=== PATIENT | female | born 1995 | race Caucasian/White ===

== ENCOUNTER 2016-06-30 05:43 | Outpatient (CLI) | payer MEDICAID ==
[~2016-06-30] VITALS: Ht 152.4 cm; Wt 63.5 kg
[~2016-06-30 05:43] MED LIST: ACET325T38 PO; ALBU8.5H2 IH; AMOX500C2 PO; BETA6VIA IJ; BUTA1CAP41 PO; CEFD300C16 PO; CYCL10TA9 PO; CYCL5TAB PO; D-ME473S17 PO; DCS100C PO; DIPH25TA82 PO; FAMO20TA5 PO; FERR-57 PO; FERR325C PO; FLT05NA16 NS; FRS325T PO; HYDR-1231 PO; HYDR-757 PO; Hydrocodone Bit/Acetaminophen PO; IBP600T1 PO; LORA10CA PO; METH4TAB10 PO; ONDA4TAB11 PO; ONDA4TAB8 PO; OXYM15MI4 NS; PHEN1SUP3 RC; PNV1TABL9 PO; PRD20T PO; PRED20TA PO; PREN-93 PO; SULF-222 PO; TRAM50TA2 PO
== END 2016-06-30 10:16 ==
LOC: PREOP 05:43
PROVIDERS: ATTEND Surgery
DX: Z01.818 Encounter for other preprocedural examination (principal); R19.7 Diarrhea, unspecified

== ENCOUNTER → 2016-07-03 | Day surgery (SDC) | payer OTHER ==
[~2016-07-03] VITALS: Ht 152.4 cm; Wt 63.5 kg
[~2016-07-03] MED LIST changes: +FLUMAZENIL (ROMAZICON) 0.1 MG/ML 5 ML VIAL INJ PRN; +MIDAZOLAM 2 MG/2 ML (VERSED) VIAL ONE; +NALOXONE 0.4 MG/ML 1 ML (NARCAN) VIAL IVP PRN; +NS IV 500 ML 500 ML IV ONE; +NS IV 500 ML 500 ML ONE; +fentaNYL INJECTION 100 MCG/2 ML AMP ONE
--- NOTE | 2016-07-03 11:22 | Conscious Sedation/ASA ---
Conscious Sedation Pre-Proced ASA Class: 2 Airway Mallampati Classification: ([place] appropriate class) I. II. III, IV Lungs Heart ASA score ASA 1: a normal healthy patient ASA 2: a patient with a mild systemic disease (mid diabetes, controlled hypertension, obesity ASA 3: a patient with a severe systemic disease that limits activity (angina , COPD, prior Myocardial infarction) ASA 4: a patient with an incapacitating disease that is a constant threat to life (CHF, renal failure) ASA 5: a moribund patient not expected to survive 24 hrs. (ruptured aneurysm) ASA 6: a declared brain patient whose organs are being harvested. For emergent operations, add the letter E after the classification Grade 1 Sedation Plan: Discussed options with patient/fam Note The patient is an appropriate candidate to undergo the planned procedure, sedation, and anesthesia. The patient immediately re-assessed prior to indication. HANK GREEN MD Jul 03, 2016 11:22 am
[2016-07-03 11:25] VITALS: BP 119/88
[2016-07-03] MEDS: fentaNYL INJECTION 100 MCG/2 ML AMP IVP PRN ×4 (11:51→12:02)
[2016-07-03] MEDS: MIDAZOLAM 2 MG/2 ML (VERSED) VIAL IVP PRN ×4 (11:52→11:59)
--- NOTE | 2016-07-03 12:08 | Endoscopy Procedure Report ---
Endoscopy Report Date: Jul 03, 2016 Preoperative Diagnosis: change in bowel habits Study Performed: Colonoscopy Procedure Instrument: Colonoscope Endo Procedure/Findings Findings 1.: Normal Copy Copies To 1: ROXY JUSTIN XAVIER M MD Jul 03, 2016 12:08 pm
--- NOTE | 2016-07-03 12:09 | Discharge Inst-Simple/Standard ---
Discharge Inst-Standard Discharge Medications New, Converted or Re-Newed RX: Other Patient Instructions/Follow Up Plan of Care/Instructions/FU: follow-up with her primary Activity as Tolerated: Yes Discharge Diet: No Restrictions HANK GREEN MD Jul 03, 2016 12:09 pm
[2016-07-03 12:35] VITALS: BP 103/61
--- NOTE | 2016-07-03 13:03 | OPERATIVE REPORT ---
DATE OF SERVICE: 07/03/2016 PROCEDURE: Colonoscopy. SURGEON: HANK GREEN MD INDICATION FOR PROCEDURE: This lady came in for colonoscopy to evaluate a change in her bowel habits with intermittent diarrhea. Informed consent was obtained after reviewing the procedure in detail. DESCRIPTION OF PROCEDURE: She was placed in left lateral decubitus position and her vital signs were monitored. Conscious sedation was achieved using Versed and fentanyl. Digital rectal examination was unremarkable. The colonoscope was introduced into the rectum and advanced all the way up the cecum. It was then withdrawn slowly and the mucosa examined in a systematic fashion. There was no abnormality. She tolerated the procedure well and was taken back to the nursing area in a stable condition. IMPRESSION: 1. Change in bowel habits. 2. Normal colonoscopy. NOTE: Her symptoms could be managed along the lines of irritable bowel syndrome. Job ID: [id number] DocumentID: [id number] Dictated Date: 07/03/2016 12:04:52 Crotch Breaker Date: 07/03/2016 13:03:09 Dictated By: HANK GREEN MD MTDD
[2016-07-03 13:05] VITALS: BP 101/69
[2016-07-03 13:20] VITALS: BP 101/69
== END ==
LOC: ENDO 11:08
PROVIDERS: ATTEND Surgery
DX: R19.7 Diarrhea, unspecified (principal); R19.5 Other fecal abnormalities
CPT/HCPCS: 84703

== ENCOUNTER → 2016-11-09 | Outpatient (CLI) | payer MEDICAID, OTHER ==
[~2016-11-09] MED LIST changes: +CATHETER FLUSH 10 ML SYR IV PRN; -FLUMAZENIL (ROMAZICON) 0.1 MG/ML 5 ML VIAL INJ PRN; +IOHEXOL 350 MG/ML 100 ML (OMNIPAQUE 350) VIAL IV ONE; -MIDAZOLAM 2 MG/2 ML (VERSED) VIAL ONE; -NALOXONE 0.4 MG/ML 1 ML (NARCAN) VIAL IVP PRN; +NS 100 ML (IVPB) BAG IV ONE; -NS IV 500 ML 500 ML IV ONE; -NS IV 500 ML 500 ML ONE; -fentaNYL INJECTION 100 MCG/2 ML AMP ONE
--- NOTE | 2016-11-09 16:19 | Diagnostic Imaging Report ---
INDICATION: Headaches x3 months. CT brain obtained pre-and post IV contrast. There are no extra-axial fluid collections. No intracranial hemorrhage. No intracranial mass or mass effect. No midline shift. The ventricles are normal in size and position. There are no focal parenchymal abnormalities in the brain. Calvarial windows were unremarkable. Postcontrast images demonstrate no enhancing intracranial lesions. Visualized portions of the sinuses are clear. IMPRESSION: Negative CT brain pre-and post IV contrast. Dictated by: Dictated on workstation # [id number]
== END ==
LOC: RAD 11:54
PROVIDERS: ATTEND Nurse Practitioner Family
DX: R51 Headache (principal)
CPT/HCPCS: 70470

== ENCOUNTER → 2017-04-23 | Outpatient (CLI) | payer MEDICAID ==
[~2017-04-23] MED LIST changes: -CATHETER FLUSH 10 ML SYR IV PRN; -IOHEXOL 350 MG/ML 100 ML (OMNIPAQUE 350) VIAL IV ONE; -NS 100 ML (IVPB) BAG IV ONE
--- NOTE | 2017-04-23 14:42 | Diagnostic Imaging Report ---
INDICATION: anatomy survey. TECHNIQUE: Multiple real-time grayscale images were obtained over the gravid uterus. COMPARISON: None. FINDINGS: The cervix is closed and measures approximately 5 cm in length. The placenta is anteriorly located with the inferior margin covering the internal cervical os. A single live intrauterine is present with a heart rate of 142 beats per minute. biometric data is supplied below. anatomy survey was performed, and the following structures are visualized and normal: Cisterna magna, cerebellum, cerebral ventricles, four-chamber heart, stomach, kidneys, umbilical cord insertion, and urinary bladder. The spine and three-vessel cord were suboptimally seen on this exam. Biometrical measurements are as follows: Biparietal 4.53 cm, age 19 weeks 5 days. Head circumference 16.61 cm, age 19 weeks 3 days. Abdominal circumference 14.91 cm, age 20 weeks 2 days. Femur length 3.13 cm, age 19 weeks 6 days. Sonographic estimate age: 19 weeks 6 days. Sonographic estimated date of delivery: 09/11/2017. Estimated Weight: 319 gm (+/- 47 gm). LMP percentile: 56%. heart rate: 142 beats per minute. number: 1 of 1. Due to advanced gestational age, the bilateral adnexa are suboptimally evaluated due to the gravid uterus. IMPRESSION: 1. Marginal placenta with potential placenta previa. Followup ultrasound in the near future is advised to reassess this finding. 2. spine and three-vessel cord were not well seen on this examination. Recommend short-term followup to reassess these structures. 3. The remainder of the anatomy survey was normal. Dictated by: Dictated on workstation # [id number]
== END ==
LOC: RAD 10:17
PROVIDERS: ATTEND Obstetrics & Gynecology
DX: Z36.89 Encounter for other specified antenatal screening (principal); Z3A.19 19 weeks gestation of pregnancy
CPT/HCPCS: 76805

== ENCOUNTER → 2017-04-25 | Outpatient (CLI) | payer MEDICAID | LOC: CARD 09:36 | PROVIDERS: ATTEND Obstetrics & Gynecology | DX: R00.2 Palpitations (principal); Z87.898 Personal history of other specified conditions | CPT/HCPCS: 93005 ==

== ENCOUNTER 2017-04-26 13:52 | Emergency (ER) | payer MEDICAID ==
[~2017-04-26] VITALS: Ht 152.4 cm; Wt 59.0 kg
--- NOTE | 2017-04-26 14:29 | ED Cardiac General ---
History of Present Illness General Chief Complaint: Chest Pain Stated Complaint: CHEST PAIN 20 WKS PREG Nursing Triage Note: Pt c/o CP since 1000 this morning. Pt is approx 20 weeks . Source: patient Exam Limitations: no limitations History of Present Illness Date Seen by Provider: Apr 26, 2017 Time Seen by Provider: 14:14 Initial Comments Here with report of chest pain event this morning and palpitations. The seen by her primary care doctor yesterday and had EKG done. States that she was driving during today's event and felt lightheaded and weak and felt like her vision was becoming tunnel vision. She called her primary doctor who requested that she come for evaluation. Patient presented without current symptoms but concerns of the problem. She is approximately 20 weeks . Denies nausea or vomiting. Denies previous events but by history has history of palpitations previously and had an event monitor. Patient does not know the results of that. Timing/Duration: 1-3 hours, resolved prior to arrival Severity: moderate Location: central Activities at Onset: rest Prior CP/Workup: other (event monitor) Modifying Factors: improves with rest NTG SL CRIB ATTENDANT: No ASA po CRIB ATTENDANT: No Associated Systoms: No Chest Pain, No Diaphoresis, No Fever/Chills, No Nausea/ Vomiting, Shortness of Air, No Weakness Allergies and Home Medications Allergies Coded Allergies: clarithromycin (Unverified Adverse Reaction, Mild, RASH, 04/30/14) Pt. reports new allergy stating caused a rash on face azithromycin (Verified Adverse Reaction, Unknown, RASH, 05/14/13) promethazine (Verified Adverse Reaction, Unknown, NAUSEA, 05/14/13) Home Medications No Active Prescriptions or Reported Meds Review of Systems Constitutional: see HPI, No chills, No fever EENTM: No Symptoms Reported Respiratory: See HPI Cardiovascular: See HPI, Chest Pain (feeling of heat across the chest), Lightheadedness, Palpitations Gastrointestinal: Denies Nausea, Denies Vomiting Genitourinary: No Symptoms Reported Musculoskeletal: no symptoms reported Skin: no symptoms reported All Other Systems Reviewed Negative Unless Noted: Yes Past Vaopinm-Xpzofm-Hjkelm Hx Patient Social History Alcohol Use: Denies Use Recreational Drug Use: No Smoking Status: Never a Smoker Recent Foreign Travel: No Contact w/Someone Who Travel: No Recent Infectious Disease Expo: No Recent Hopitalizations: No Immunizations Up To Date Tetanus Booster (TDap): Unknown Date of Influenza Vaccine: Jan 10, 2014 Seasonal Allergies Seasonal Allergies: Yes Surgeries History of Surgeries: Yes Surgeries: Gallbladder Respiratory History of Respiratory Disorde: Yes Respiratory Disorders: Asthma Cardiovascular History of Cardiac Disorders: No Neurological History of Neurological Disord: No Neurological Disorders: Neuropathy Reproductive System : Yes Expected Date of Delivery: Sep 12, 2017 Hx Reproductive Disorders: No Sexually Transmitted Disease: No HIV/AIDS: No Female Reproductive Disorders: Denies 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 Gastrointestinal History of Gastrointestinal Di: Yes Gastrointestinal Disorders: Gastroesophageal Reflux, Chronic Diarrhea Musculoskeletal History of Musculoskeletal Dis: No Endocrine History of Endocrine Disorders: No HEENT Loss of Vision: Denies Hearing Impairment: Denies Cancer History of Cancer: No Psychosocial History of Psychiatric Problem: Yes Behavioral Health Disorders: Anxiety Integumentary History of Skin or Integumenta: No Blood Transfusions History of Blood Disorders: No Adverse Reaction to a Blood Tr: No Reviewed Nursing Assessment Reviewed/Agree w Nursing PMH: Yes Family Medical History Significant Family History: No Pertinent Family Hx Family Medial History: Family history: Allergy 03 FATHER, Onset:Unknown (UNKNOWN- PT LIVED W/ GRANDPARENTS SINCE 2YRS OLD.) 03 MOTHER (UNKNOWN- PT LIVED W/ GRANDPARENTS SINCE 3 YRS OF AGE. ) Family history: Thyroid disorder (PT'S BROTHER- ADHD) History of drug abuse 03 FATHER 03 MOTHER Physical Exam Vital Signs Vital Signs - First Documented 04/26/17 14:01 Temp 97.6 Pulse 87 Resp 18 B/P (MAP) 118/68 (85) Pulse Ox 100 O2 Delivery Room Air Capillary Refill : Less Than 3 Seconds General Appearance: No Apparent Distress, WD/WN Neck: Non Tender, Supple Respiratory: Lungs Clear, Normal Breath Sounds Cardiovascular: Regular Rate, Rhythm, No Murmur Gastrointestinal: Non Tender, Soft, Other (gravid uterus at the level of the umbilicus) Extremity: Normal Range of Motion, Non Tender Neurologic/Psychiatric: Alert, Oriented x3 Skin: Normal Color, Warm/Dry Progress/Results/Core Measures Results/Orders Lab Results Laboratory Tests Test 04/26/17 15:15 Range/Units White Blood Count 10.4 4.3-11.0 10^3/uL Red Blood Count 3.67 L 4.35-5.85 10^6/uL Hemoglobin 11.3 L 11.5-16.0 G/DL Hematocrit 31 L 35-52 % Mean Corpuscular Volume 86 80-99 FL Mean Corpuscular Hemoglobin 31 25-34 PG Mean Corpuscular Hemoglobin Concent 36 32-36 G/DL Red Cell Distribution Width 13.2 10.0-14.5 % Platelet Count 348 130-400 10^3/uL Mean Platelet Volume 10.4 7.4-10.4 FL Neutrophils (%) (Auto) 70 42-75 % Lymphocytes (%) (Auto) 22 12-44 % Monocytes (%) (Auto) 6 0-12 % Eosinophils (%) (Auto) 2 0-10 % Basophils (%) (Auto) 0 0-10 % Neutrophils # (Auto) 7.2 1.8-7.8 X 10^3 Lymphocytes # (Auto) 2.3 1.0-4.0 X 10^3 Monocytes # (Auto) 0.7 0.0-1.0 X 10^3 Eosinophils # (Auto) 0.2 0.0-0.3 10^3/uL Basophils # (Auto) 0.0 0.0-0.1 10^3/uL Sodium Level 137 135-145 MMOL/L Potassium Level 3.6 3.6-5.0 MMOL/L Chloride Level 107 98-107 MMOL/L Carbon Dioxide Level 20 L 21-32 MMOL/L Anion Gap 10 5-14 MMOL/L Blood Urea Nitrogen 5 L 7-18 MG/DL Creatinine 0.67 0.60-1.30 MG/DL Estimat Glomerular Filtration Rate > 60 BUN/Creatinine Ratio 7 Glucose Level 115 H 70-105 MG/DL Calcium Level 8.7 8.5-10.1 MG/DL Magnesium Level 2.1 1.8-2.4 MG/DL Total Bilirubin 0.3 0.1-1.0 MG/DL Aspartate Amino Transf (AST/SGOT) 16 5-34 U/L Alanine Aminotransferase (ALT/SGPT) 12 0-55 U/L Alkaline Phosphatase 67 40-136 U/L Total Protein 6.8 6.4-8.2 GM/DL Albumin 3.7 3.2-4.5 GM/DL My Orders Orders - MICAH CANALES MD Cbc With Automated Diff (04/26/17 14:26) Comprehensive Metabolic Panel (04/26/17 14:26) Magnesium (04/26/17 14:26) Ekg Tracing (04/26/17 14:33) Vital Signs/I&O Vital Sign - Last 12Hours 04/26/17 04/26/17 14:01 15:14 Temp 97.6 Pulse 87 92 Resp 18 18 B/P (MAP) 118/68 (85) 104/64 (77) Pulse Ox 100 98 O2 Delivery Room Air Blood Pressure Mean: 85 Progress Note : Progress Note Seen and evaluated. Labs and EKG ordered. I did discuss the case with Dr. Rouse as she called me to give information related to the case. Patient apparently has had a event monitor in the past and history of this is through Dr. Rouse. EKG done today compared well to EKG done yesterday. She agrees with the labs and EKG evaluation. Monitor patient. 1555: No acute findings. I did discuss the case with Dr. Rouse. She will set up for event monitor. Patient to call her office in the morning. All this was discussed with the patient. Discharged home with return precautions. Patient and family verbalize understanding instructions and agreement with plan. ECG Initial ECG Impression Date: Apr 26, 2017 Initial ECG Impression Time: 14:03 Initial ECG Rate: 84 Initial ECG Rhythm: Normal Sinus Initial ECG Impression: Normal Initial ECG Comparisson: Unchanged Comment Sinus rhythm with normal axis. No evidence of ST elevation NM. Compared well to EKG done yesterday. Interpreted by me. Departure Impression Impression: Primary Impression: Palpitations Disposition: 01 HOME, SELF-CARE Condition: Improved Departure-Patient Inst. Decision time for Depature: 16:02 Referrals: [facility] [place] (PCP/Family) Primary Care Physician Patient Instructions: Palpitations (DC) Add. Discharge Instructions: All discharge instructions reviewed with patient and/or family. Voiced understanding. Follow-up with your in the morning. Call her office in the morning for recheck and further evaluation. They are going to set you up with a Holter monitor. Continue with normal diet and drink plenty of fluids. Take previously prescribed medicines as directed. Return for worse pain, fever, vomiting, weakness, breathing problems, chest pain or other concerns as needed. Scripts No Active Prescriptions or Reported Meds Copy Copies To 1: TERESA ROUSE TIMOTHY D MD Apr 26, 2017 14:28
[2017-04-26 15:14] VITALS: BP 104/64
[2017-04-26 15:21] LABS: BASOPHILS % (AUTO) 0 % (0-10); EOSINOPHILS # (AUTO) 0.2 10^3/uL (0.0-0.3); EOSINOPHILS % (AUTO) 2 % (0-10); HEMATOCRIT 31 % (35-52); HEMOGLOBIN 11.3 G/DL (11.5-16.0); LYMPHOCYTES # (AUTO) 2.3 X 10^3 (1.0-4.0); MEAN CORPUSCULAR HEMOGLOBIN 31 PG (25-34); MEAN CORPUSCULAR HGB CONC 36 G/DL (32-36); MEAN CORPUSCULAR VOLUME 86 FL (80-99); MONOCYTES # (AUTO) 0.7 X 10^3 (0.0-1.0); NEUTROPHILS % (AUTO) 70 % (42-75)
[2017-04-26 15:40] LABS: ALANINE AMINOTRANSFERASE 12 U/L (0-55); ALBUMIN 3.7 GM/DL (3.2-4.5); ALKALINE PHOSPHATASE 67 U/L (40-136); BILIRUBIN,TOTAL 0.3 MG/DL (0.1-1.0); BUN/CREATININE RATIO 7; CALCIUM 8.7 MG/DL (8.5-10.1); CARBON DIOXIDE 20 MMOL/L (21-32); CHLORIDE 107 MMOL/L (98-107); CREATININE SERUM 0.67 MG/DL (0.60-1.30); GFR ESTIMATED > 60; GLUCOSE 115 MG/DL (70-105); MAGNESIUM 2.1 MG/DL (1.8-2.4); POTASSIUM 3.6 MMOL/L (3.6-5.0); SODIUM 137 MMOL/L (135-145); TOTAL PROTEIN 6.8 GM/DL (6.4-8.2)
[2017-04-26 15:51] LABS: LYMPHOCYTES % (AUTO) 22 % (12-44); MEAN PLATELET VOLUME 10.4 FL (7.4-10.4); MONOCYTES % (AUTO) 6 % (0-12); NEUTROPHILS # (AUTO) 7.2 X 10^3 (1.8-7.8); PLATELET COUNT 348 10^3/uL (130-400); RED BLOOD COUNT 3.67 10^6/uL (4.35-5.85); RED CELL DISTRIBUTION WIDTH 13.2 % (10.0-14.5); WHITE BLOOD COUNT 10.4 10^3/uL (4.3-11.0)
[2017-04-26 16:15] VITALS: BP 105/69
== END 2017-04-26 16:15 | disposition home or self-care (01) ==
LOC: EDUNIT# 13:52 → ER 13:54
DX: O99.89 Other specified diseases and conditions complicating pregnancy, childbirth and the puerperium (principal); R00.2 Palpitations; O99.512 Diseases of the respiratory system complicating pregnancy, second trimester; J45.909 Unspecified asthma, uncomplicated; O99.612 Diseases of the digestive system complicating pregnancy, second trimester; K21.9 Gastro-esophageal reflux disease without esophagitis; O99.342 Other mental disorders complicating pregnancy, second trimester; F41.9 Anxiety disorder, unspecified; Z88.1 Allergy status to other antibiotic agents; Z88.8 Allergy status to other drugs, medicaments and biological substances; Z97.5 Presence of (intrauterine) contraceptive device; Z3A.20 20 weeks gestation of pregnancy
CPT/HCPCS: 36415; 80053; 83735; 85025; 93005

== ENCOUNTER 2017-06-11 19:39 | Outpatient (CLI) | payer MEDICAID ==
[~2017-06-11] VITALS: Ht 152.4 cm; Wt 61.3 kg
[2017-06-11] MEDS ORDERED: PNV1TABL81 PO (19:54)
[2017-06-11] MEDS ORDERED: MAGN250T13 PO (19:54)
[2017-06-11] MEDS ORDERED: POTA25TA7 PO (19:54)
[2017-06-11 20:00] VITALS: BP 124/67
[2017-06-11 20:14] LABS: BILIRUBIN,URINE NEGATIVE (NEGATIVE); CLARITY,URINE SLIGHTLY CLOUDY; COLOR,URINE YELLOW; GLUCOSE, URINE (UA) NEGATIVE (NEGATIVE); KETONES,URINE 1+ (NEGATIVE); LEUKOCYTE ESTERASE ,URINE 1+ (NEGATIVE); NITRITE,URINE NEGATIVE (NEGATIVE); PH,URINE 7 (5-9); PROTEIN,URINE 2+ (NEGATIVE); UROBILINOGEN,URINE 1 MG/DL (NORMAL)
[2017-06-11 20:22] LABS: BACTERIA,URINE TRACE /HPF; CALCIUM OXALATE CRYSTALS,UR LARGE /LPF; RBC,URINE RARE /HPF; WBC,URINE 0-2 /HPF
[2017-06-11 20:50] VITALS: BP 115/68
--- NOTE | 2017-06-12 18:19 | Physician Query-Final Dx ---
MAHIN GREEN 06/12/17 1819: Clinic Account Progress/Dx Physician Query: Please give diagnosis Date of Service Jun 11, 2017 at 19:39 AASHISH LUJAN DO 06/13/17 0745: Clinic Account Progress/Dx DIAGNOSIS: Diagnosis 28 week IUP Spotting in MAHIN GREEN Jun 12, 2017 18:19 AASHISH LUJAN DO Jun 13, 2017 07:45
== END 2017-06-11 20:55 | disposition home or self-care (01) ==
LOC: LDRP 19:39 → WSo 19:39
PROVIDERS: ATTEND Obstetrics & Gynecology
DX: O26.853 Spotting complicating pregnancy, third trimester (principal); Z3A.28 28 weeks gestation of pregnancy
CPT/HCPCS: 81000; 87088; 99213

== ENCOUNTER → 2017-06-25 | Outpatient (CLI) | payer MEDICAID ==
[~2017-06-25] MED LIST changes: +ACET-77 PO; +FERR325T18 PO; +HYDR50TA76 PO; +IBUP-844 PO; +MAGN250T13 PO; +PNV1TABL81 PO; +POTA25TA7 PO
--- NOTE | 2017-06-25 12:22 | Diagnostic Imaging Report ---
INDICATION: Followup placental location as well as three-vessel cord and spine. TECHNIQUE: Multiple Real-time grayscale images were obtained over the gravid uterus. COMPARISON: 04/23/2017. FINDINGS: There is a single live fetus in a cephalic presentation. The placenta is anterior. No marginal placenta or placenta previa is seen on today's study. The tip appears to be approximately 6 cm from the internal os. The cervical spine remains obscured. The thoracic and lumbar spine are unremarkable. There is a three-vessel cord. The cervical length is 3.7 cm. IMPRESSION: No evidence of marginal placenta or placenta previa. The fetus does have a three-vessel cord. The cervical spine was obscured due to position. Dictated by: Dictated on workstation # [id number]
== END ==
LOC: RAD 10:12
PROVIDERS: ATTEND Obstetrics & Gynecology
DX: O44.23 Partial placenta previa NOS or without hemorrhage, third trimester (principal); Z3A.29 29 weeks gestation of pregnancy
CPT/HCPCS: 76816

== ENCOUNTER → 2017-08-02 | Outpatient (CLI) | payer MEDICAID ==
--- NOTE | 2017-08-02 15:14 | Diagnostic Imaging Report ---
INDICATION: Gestational diabetes. TECHNIQUE: Multiple real-time grayscale images were obtained over the gravid uterus. COMPARISON: None FINDINGS: Intrauterine is currently in a cephalic presentation. The placenta is along the anterior aspect without evidence for previa. cardiac activity at 142 beats per minute. Normal amount of amniotic fluid with an index at 12.59 cm. Biometrical measurements are as follows: Biparietal 8.49 cm, age 34 weeks 2 days. Head circumference 30.37 cm, age 33 weeks 6 days. Abdominal circumference 28.64 cm, age 32 weeks 5 days. Femur length 6.37 cm, age 33 weeks 0 days. Sonographic estimate age: 33 weeks 4 days. Sonographic estimated date of delivery: 09/16/2017. Estimated Weight: 2093 gm (+/- 306 gm). LMP percentile: 15%. heart rate: 142 beats per minute. number: 1 of 1. IMPRESSION: 1. Single viable imaging currently in a cephalic presentation, sonographic estimate age 33 weeks 4 days for an estimated date of delivery 09/16/2017. 2. Normal biophysical profile score. Dictated by: Dictated on workstation # [id number]
== END ==
LOC: RAD 14:01
PROVIDERS: ATTEND Obstetrics & Gynecology
DX: O24.410 Gestational diabetes mellitus in pregnancy, diet controlled (principal); Z3A.33 33 weeks gestation of pregnancy
CPT/HCPCS: 76805; 76819

== ENCOUNTER 2017-08-27 12:05 | Inpatient (IN) | payer BC, MEDICAID ==
[2017-08-27] VITALS (42 sets, daily range): BP systolic 97–128; BP diastolic 52–82
[~2017-08-27] VITALS: Ht 152.4 cm; Wt 65.3 kg
[~2017-08-27 12:05] MED LIST changes: -ACET-77 PO; -FERR325T18 PO; -IBUP-844 PO
[2017-08-27] MEDS ORDERED: D5 LR IV SOLUTION 1,000 ML IV SCH (12:22)
[2017-08-27] MEDS ORDERED: MINERAL OIL CONCENTRATE 99.9% 15 ML UDC TOP PRN (12:30)
[2017-08-27] MEDS ORDERED: LIDOCAINE 1% INJ 20 ML 20 ML VIAL INJ PRN (12:30)
[2017-08-27 12:56] LABS: BASOPHILS % (AUTO) 0 % (0-10); EOSINOPHILS # (AUTO) 0.1 10^3/uL (0.0-0.3); EOSINOPHILS % (AUTO) 1 % (0-10); HEMATOCRIT 30 % (35-52); HEMOGLOBIN 9.9 G/DL (11.5-16.0); LYMPHOCYTES # (AUTO) 2.4 X 10^3 (1.0-4.0); LYMPHOCYTES % (AUTO) 23 % (12-44); MEAN CORPUSCULAR HEMOGLOBIN 26 PG (25-34); MEAN CORPUSCULAR HGB CONC 33 G/DL (32-36); MEAN CORPUSCULAR VOLUME 79 FL (80-99); MEAN PLATELET VOLUME 11.5 FL (7.4-10.4); MONOCYTES # (AUTO) 0.6 X 10^3 (0.0-1.0); MONOCYTES % (AUTO) 6 % (0-12); NEUTROPHILS # (AUTO) 7.1 X 10^3 (1.8-7.8); NEUTROPHILS % (AUTO) 70 % (42-75); PLATELET COUNT 320 10^3/uL (130-400); RED BLOOD COUNT 3.78 10^6/uL (4.35-5.85); RED CELL DISTRIBUTION WIDTH 13.6 % (10.0-14.5); WHITE BLOOD COUNT 10.1 10^3/uL (4.3-11.0)
[2017-08-27 13:06] LABS: BILIRUBIN,URINE NEGATIVE (NEGATIVE); CLARITY,URINE CLEAR; COLOR,URINE YELLOW; GLUCOSE, URINE (UA) NEGATIVE (NEGATIVE); KETONES,URINE NEGATIVE (NEGATIVE); LEUKOCYTE ESTERASE ,URINE 2+ (NEGATIVE); NITRITE,URINE NEGATIVE (NEGATIVE); PH,URINE 7 (5-9); PROTEIN,URINE 1+ (NEGATIVE); UROBILINOGEN,URINE 1 MG/DL (NORMAL)
[2017-08-27 13:24] LABS: BACTERIA,URINE TRACE /HPF; WBC,URINE 0-2 /HPF
[2017-08-27] MEDS ORDERED: CATHETER FLUSH 10 ML SYR IV SCH ×2 (14:00→22:00)
[2017-08-27] MEDS ORDERED: SUFENTA 0.6MCG/ML BUPIVA 0.125 100 ML ONE (16:37)
[2017-08-27] MEDS ORDERED: BUPIVACAINE 0.25% 30 ML (SENSORCAINE) VIAL ONE (17:36)
[2017-08-27] MEDS ORDERED: LACTATED RINGERS 1,000 ML IV ONE (18:16)
[2017-08-27] MEDS ORDERED: CATHETER FLUSH 10 ML SYR IV PRN (18:30)
[2017-08-27] MEDS ORDERED: NALOXONE 0.4 MG/ML 1 ML (NARCAN) VIAL IV PRN (18:30)
[2017-08-27] MEDS ORDERED: OXYTOCIN/NORMAL SALINE 500 ML IV ONE (19:07)
[2017-08-27] MEDS ORDERED: OXYTOCIN/NORMAL SALINE 500 ML IV SCH (19:21)
--- NOTE | 2017-08-27 19:24 | OB Labor & Delivery Record ---
Vag Delivery Note Vag Delivery Note Date of Delivery: 08/27/17 Preoperative Diagnosis: Janene Callahan is a 23 /Para 3/2 ,Gestational Age 37 5/7 weeks, in labor, non reactive testing in office Postoperative Diagnosis: Same Surgeon: TERESA ROUSE Anesthesia: epidural Delivery Type: vaginal Findings: Viable male infant, apgars 9/9, weight pending Lacerations: none Intact placenta with 3 vessel cord. Nuchal cord x 3, no body cord or shoulder dystocia Estimated Blood Loss: 100 ml Complications: None Condition: Stable Description of Procedure: The patient is a 23 /Para 3/2 ,Gestational Age 37 5/7 weeks, in labor, non reactive testing in office. She was admitted and informed consent was obtained. Her labor course was remarkable for AROM and epidural. She progressed to complete dilatation and began to push. She was then set up for delivery. The infant's head was delivered atraumatically in the [TOI position. The shoulders and remainder of the ' s body were then delivered without difficulty. Upon delivery, the head was held below the level of the perineum and the mouth and nares were bulb suctioned. The cord was doubly clamped and cut and the was handed off to the pediatric staff. An intact placenta with 3-vessel cord delivered via Esther and there was found to be minimal bleeding.~ Vigorous fundal massage was performed and the fundus was found to be firm. IV oxytocin was given. Examination of the vagina and perineum revealed a no laceration. Following the delivery, sponge, instrument and needle counts were correct. Mom and baby were both in stable condition in the labor suite. Vitals - Labs Vital Signs - I&O Vital Signs Date Time Temp Pulse Resp B/P (MAP) Pulse Ox O2 Delivery O2 Flow Rate FiO2 08/27/17 12:15 97.5 87 18 121/73 (89) Room Air Labs Laboratory Tests 08/27/17 12:40: White Blood Count 10.1, Red Blood Count 3.78L, Hemoglobin 9.9L, Hematocrit 30L, Mean Corpuscular Volume 79L, Mean Corpuscular Hemoglobin 26, Mean Corpuscular Hemoglobin Concent 33, Red Cell Distribution Width 13.6, Platelet Count 320, Mean Platelet Volume 11.5H, Neutrophils (%) (Auto) 70, Lymphocytes (%) (Auto) 23 , Monocytes (%) (Auto) 6, Eosinophils (%) (Auto) 1, Basophils (%) (Auto) 0, Neutrophils # (Auto) 7.1, Lymphocytes # (Auto) 2.4, Monocytes # (Auto) 0.6, Eosinophils # (Auto) 0.1, Basophils # (Auto) 0.0 08/27/17 12:50: Urine Color YELLOW, Urine Clarity CLEAR, Urine pH 7, Urine Specific [place] 1.010L, Urine Protein 1+H, Urine Glucose (UA) NEGATIVE, Urine Ketones NEGATIVE, Urine Nitrite NEGATIVE, Urine Bilirubin NEGATIVE, Urine Urobilinogen 1, Urine Leukocyte Esterase 2+H, Urine RBC (Auto) NEGATIVE, Urine RBC NONE, Urine WBC 0-2 , Urine Squamous Epithelial Cells 5-10, Urine Crystals NONE, Urine Bacteria TRACE, Urine Casts NONE, Urine Mucus NEGATIVE, Urine Culture Indicated NO TERESA ROUSE DO Aug 27, 2017 19:24
[2017-08-27] MEDS ORDERED: MEASLES,MUMPS,RUBELLA 1 EA INJ SQ ONE (19:30)
[2017-08-27] MEDS ORDERED: TETANUS,DIPTH,PERTUSS P/F (BOOSTRIX) 0.5 ML VIAL IM ONE (19:30)
[2017-08-27] MEDS ORDERED: WITCH HAZEL(TUCKS) 40 EA JAR TOP PRN (19:30)
[2017-08-27] MEDS ORDERED: BENZOCAINE/MENTHOL (DERMOPLAST) 56 ML CAN TP PRN (19:30)
[2017-08-27] MEDS: IBUPROFEN 600 MG (MOTRIN) TAB PO SCH (19:50)
[2017-08-27] MEDS: ACETAMINOPHEN 500 MG TAB (TYLENOL) PO PRN (23:57)
[2017-08-28] MEDS: IBUPROFEN 600 MG (MOTRIN) TAB PO SCH ×4 (02:48→21:19)
[2017-08-28 05:20] VITALS: BP 106/64
[2017-08-28 07:01] LABS: BASOPHILS % (AUTO) 0 % (0-10); EOSINOPHILS # (AUTO) 0.2 10^3/uL (0.0-0.3); EOSINOPHILS % (AUTO) 2 % (0-10); HEMATOCRIT 27 % (35-52); HEMOGLOBIN 8.7 G/DL (11.5-16.0); LYMPHOCYTES # (AUTO) 3.2 X 10^3 (1.0-4.0); LYMPHOCYTES % (AUTO) 24 % (12-44); MEAN CORPUSCULAR HEMOGLOBIN 26 PG (25-34); MEAN CORPUSCULAR HGB CONC 32 G/DL (32-36); MEAN CORPUSCULAR VOLUME 80 FL (80-99); MEAN PLATELET VOLUME 11.7 FL (7.4-10.4); MONOCYTES # (AUTO) 0.9 X 10^3 (0.0-1.0); MONOCYTES % (AUTO) 7 % (0-12); NEUTROPHILS # (AUTO) 9.1 X 10^3 (1.8-7.8); NEUTROPHILS % (AUTO) 68 % (42-75); PLATELET COUNT 282 10^3/uL (130-400); RED BLOOD COUNT 3.39 10^6/uL (4.35-5.85); RED CELL DISTRIBUTION WIDTH 13.9 % (10.0-14.5); WHITE BLOOD COUNT 13.4 10^3/uL (4.3-11.0)
[2017-08-28 08:44] VITALS: BP 111/74
[2017-08-28] MEDS: PRENATAL VITAMIN 1 EA TAB PO SCH (08:44)
[2017-08-28] MEDS: FERROUS SULF 325 MG (IRON) TAB PO SCH (08:44)
[2017-08-28] MEDS: DOCUSATE SODIUM 100 MG (COLACE) CAP PO SCH ×2 (08:44→21:19)
--- NOTE | 2017-08-28 11:12 | Anesthesia-Regional Post-Op ---
Regional Patient Condition Mental Status: Alert, Oriented x3 Circulation: Same as Pre-Op Headache: Absent Sensation: Full Recovery Motor Block: Absent Post Op Complications Complications None Follow Up Care/Instructions Patient Instructions None needed. Anesthesia/Patient Condition Patient is doing well, no complaints, stable vital signs, no apparent adverse anesthesia problems. No complications reported per nursing. RJ BROWER CRNA Aug 28, 2017 11:12
[2017-08-28 12:45] VITALS: BP 105/66
[2017-08-28] MEDS: ACETAMINOPHEN 500 MG TAB (TYLENOL) PO PRN (13:28)
[2017-08-28 15:45] VITALS: BP 110/70
[2017-08-28 21:20] VITALS: BP 116/63
[2017-08-29 03:35] VITALS: BP 121/70
[2017-08-29] MEDS: IBUPROFEN 600 MG (MOTRIN) TAB PO SCH ×2 (03:40→09:21)
[2017-08-29 08:00] VITALS: BP 115/75
--- NOTE | 2017-08-29 08:25 | Postpartum Progress Note ---
Note Note Day # 1 s/p Subjective: Patient is without complaints. Ambulating, voiding. Tolerating a regular diet without nausea or vomiting. Normal lochia. Pain is well controlled with oral pain medications. . Objective: Laboratory Tests Test 08/27/17 12:40 08/27/17 12:50 08/28/17 06:27 Range/Units White Blood Count 10.1 13.4 H 4.3-11.0 10^3/uL Red Blood Count 3.78 L 3.39 L 4.35-5.85 10^6/uL Hemoglobin 9.9 L 8.7 L 11.5-16.0 G/DL Hematocrit 30 L 27 L 35-52 % Mean Corpuscular Volume 79 L 80 80-99 FL Mean Corpuscular Hemoglobin 26 26 25-34 PG Mean Corpuscular Hemoglobin Concent 33 32 32-36 G/DL Red Cell Distribution Width 13.6 13.9 10.0-14.5 % Platelet Count 320 282 130-400 10^3/uL Mean Platelet Volume 11.5 H 11.7 H 7.4-10.4 FL Neutrophils (%) (Auto) 70 68 42-75 % Lymphocytes (%) (Auto) 23 24 12-44 % Monocytes (%) (Auto) 6 7 0-12 % Eosinophils (%) (Auto) 1 2 0-10 % Basophils (%) (Auto) 0 0 0-10 % Neutrophils # (Auto) 7.1 9.1 H 1.8-7.8 X 10^3 Lymphocytes # (Auto) 2.4 3.2 1.0-4.0 X 10^3 Monocytes # (Auto) 0.6 0.9 0.0-1.0 X 10^3 Eosinophils # (Auto) 0.1 0.2 0.0-0.3 10^3/uL Basophils # (Auto) 0.0 0.0 0.0-0.1 10^3/uL Urine Color YELLOW Urine Clarity CLEAR Urine pH 7 5-9 Urine Specific [place] 1.010 L 1.016-1.022 Urine Protein 1+ H NEGATIVE Urine Glucose (UA) NEGATIVE NEGATIVE Urine Ketones NEGATIVE NEGATIVE Urine Nitrite NEGATIVE NEGATIVE Urine Bilirubin NEGATIVE NEGATIVE Urine Urobilinogen 1 NORMAL MG/DL Urine Leukocyte Esterase 2+ H NEGATIVE Urine RBC (Auto) NEGATIVE NEGATIVE Urine RBC NONE /HPF Urine WBC 0-2 /HPF Urine Squamous Epithelial Cells 5-10 /HPF Urine Crystals NONE /LPF Urine Bacteria TRACE /HPF Urine Casts NONE /LPF Urine Mucus NEGATIVE /LPF Urine Culture Indicated NO Physical Exam: General - Alert and oriented, no apparent distress Abdomen - Soft, appropriately tender to palpation, non-distended, fundus firm at umbilicus Extremities - no edema, negative Annita's bilaterally Assessment: 1. post- day # 2, status post spontaneous vaginal delivery. Recovering well, hemodynamically stable Plan: Routine care. Encourage breast feeding. Encourage ambulation. Ferrous sulfate supplementation. Plan for discharge today Vitals - Labs Vital Signs - I&O Vital Signs Date Time Temp Pulse Resp B/P (MAP) Pulse Ox O2 Delivery O2 Flow Rate FiO2 08/29/17 08:00 97.7 67 18 115/75 (88) 99 Room Air 08/29/17 03:35 97.8 81 18 121/70 (87) 97 Room Air 08/28/17 21:20 97.8 79 18 116/63 (80) 98 Room Air 08/28/17 15:45 98.3 76 18 110/70 (83) 98 Room Air 08/28/17 12:45 98.0 72 18 105/66 (79) 98 Room Air 08/28/17 08:44 97.2 66 20 111/74 (86) 98 Room Air TERESA ROUSE DO Aug 29, 2017 08:25
[2017-08-29] MEDS ORDERED: IBUP-844 PO (08:27)
[2017-08-29] MEDS ORDERED: FERR325T18 PO (08:27)
[2017-08-29] MEDS ORDERED: ACET-77 PO (08:27)
--- NOTE | 2017-08-29 08:29 | Discharge Inst-Women's Service ---
Discharge Inst-Women's Serv Depart Medication/Instructions New, Converted or Re-Newed RX: RX on Chart Final Diagnosis non reassuring testing anemia, antepartum and post blood loss vaginal delivery epidural Consults/Follow Up Additional Follow Up: Yes (6 weeks pp with Corbin) Activity Activity: Activity as Tolerated Driving Instructions: You May Drive NO SMOKING: NO SMOKING Nothing Inside Vagina: No Douching, No [place], No Tampons Diet Discharge Diet: No Restrictions Symptoms to Report to : Bleeding Excessive, Pain Increased, Fever Over 101 Degrees F, Vaginal Bleeding Increase, Cramps in Feet or Legs, Vaginal Discharge Foul For Any Problems or Questions: Contact Your Physician TERESA ROUSE DO Aug 29, 2017 08:29
[2017-08-29] MEDS: PRENATAL VITAMIN 1 EA TAB PO SCH (09:21)
[2017-08-29] MEDS: FERROUS SULF 325 MG (IRON) TAB PO SCH (09:21)
[2017-08-29] MEDS: DOCUSATE SODIUM 100 MG (COLACE) CAP PO SCH (09:22)
[2017-08-29] MEDS ORDERED: TETANUS,DIPTH,PERTUSS P/F (BOOSTRIX) 0.5 ML VIAL IM ONE (09:24)
[2017-08-29 11:30] VITALS: BP 115/75
== END 2017-08-29 11:30 | disposition home or self-care (01) | DRG 775 ==
LOC: LDRP 12:05
PROVIDERS: ADMIT Obstetrics & Gynecology; ATTEND Obstetrics & Gynecology
PROC: 10E0XZZ Delivery of Products of Conception, External Approach (ICD-10-PCS; principal; 2017-08-27)
DX: O69.81X0 Labor and delivery complicated by cord around neck, without compression, not applicable or unspecified (principal); Z37.0 Single live birth; Z23 Encounter for immunization; O99.02 Anemia complicating childbirth; O90.81 Anemia of the puerperium; D64.9 Anemia, unspecified; Z3A.37 37 weeks gestation of pregnancy
CPT/HCPCS: 36415; 81000; 85025; 86850; 86900; 86901; 90715

== ENCOUNTER 2019-07-04 09:57 | Outpatient (RCR) | payer SELFPAY ==
[~2019-07-04 09:57] MED LIST changes: +ACET-78 PO; +FERR325T18 PO; +IBUP-844 PO
== END 2019-10-02 | disposition home or self-care (01) ==
LOC: CARD 09:57
PROVIDERS: ATTEND Nurse Practitioner Family
DX: R55 Syncope and collapse (principal)
CPT/HCPCS: 93270

== ENCOUNTER 2019-11-09 21:32 | Emergency (ER) | payer MEDICAID ==
[~2019-11-09] VITALS: Ht 152.4 cm; Wt 63.5 kg
[2019-11-09] MEDS ORDERED: LACTATED RINGERS 1,000 ML IV ONE (22:01)
[2019-11-09 22:14] LABS: BASOPHILS % (AUTO) 0 % (0-10); EOSINOPHILS # (AUTO) 0.4 10^3/uL (0.0-0.3); EOSINOPHILS % (AUTO) 5 % (0-10); HEMATOCRIT 43 % (35-52); LYMPHOCYTES # (AUTO) 2.9 X 10^3 (1.0-4.0); LYMPHOCYTES % (AUTO) 37 % (12-44); MEAN CORPUSCULAR HEMOGLOBIN 31 PG (25-34); MEAN CORPUSCULAR HGB CONC 35 G/DL (32-36); MEAN CORPUSCULAR VOLUME 88 FL (80-99); MONOCYTES # (AUTO) 0.7 X 10^3 (0.0-1.0); MONOCYTES % (AUTO) 9 % (0-12); NEUTROPHILS # (AUTO) 3.9 X 10^3 (1.8-7.8); NEUTROPHILS % (AUTO) 50 % (42-75); PLATELET COUNT 327 10^3/uL (130-400); RED CELL DISTRIBUTION WIDTH 12.1 % (10.0-14.5); WHITE BLOOD COUNT 7.9 10^3/uL (4.3-11.0)
[2019-11-09] MEDS ORDERED: HYOSCYAMINE 0.125 MG (LEVSIN) TAB SL ONE (22:15)
[2019-11-09] MEDS ORDERED: FAMOTIDINE 20MG/2ML IV (PEPCID) IVP ONE (22:15)
[2019-11-09] MEDS ORDERED: ONDANSETRON 4 MG/2 ML (SDV) Z0FRAN IVP ONE (22:15)
[2019-11-09 22:19] LABS: ALBUMIN 4.5 GM/DL (3.2-4.5); CHLORIDE 104 MMOL/L (98-107); POTASSIUM 3.3 MMOL/L (3.6-5.0); SODIUM 138 MMOL/L (135-145)
[2019-11-09 22:21] LABS: CALCIUM 8.8 MG/DL (8.5-10.1)
[2019-11-09 22:22] LABS: GLUCOSE 114 MG/DL (70-105); TOTAL PROTEIN 7.4 GM/DL (6.4-8.2)
[2019-11-09 22:23] LABS: CARBON DIOXIDE 22 MMOL/L (21-32)
[2019-11-09 22:24] LABS: BILIRUBIN,TOTAL 0.4 MG/DL (0.1-1.0)
[2019-11-09 22:25] LABS: ALKALINE PHOSPHATASE 62 U/L (40-136)
[2019-11-09 22:26] LABS: CREATININE SERUM 0.96 MG/DL (0.60-1.30); GFR ESTIMATED > 60
--- NOTE | 2019-11-09 22:26 | ED GI ---
General Chief Complaint: Abdominal/GI Problems Stated Complaint: ABD CRAMPS, N/V, Nursing Triage Note: PT AMBULATE TO ROOM 05 WITH C/O ABD PAIN/N/V/D X3 DAYS. Sepsis Screen: No Definite Risk Source of Information: Patient Exam Limitations: No Limitations History of Present Illness Date Seen by Provider: Nov 09, 2019 Time Seen by Provider: 21:54 Initial Comments This 24-year-old young lady presents to the emergency room with complaints of abdominal pain and cramping accompanied by nausea, vomiting, and diarrhea. Symptoms started when she returned from a visit to [place] on November 02. It started with just nausea. The next day she developed a belly cramping. By Sun, November 06 she had developed nausea, vomiting, and watery diarrhea with very sharp intermittent cramping. She has had hot flashes without fever. She denies any blood in her stool. She has been trying Tylenol, Aleve, and Pepto-Bismol without relief. She denies as she has an IUD. She denies any drug or alcohol use. Allergies and Home Medications Allergies Coded Allergies: clarithromycin (Unverified Adverse Reaction, Mild, RASH, 04/30/14) Pt. reports new allergy stating caused a rash on face azithromycin (Verified Adverse Reaction, Unknown, RASH, 05/14/13) promethazine (Verified Adverse Reaction, Unknown, NAUSEA, 05/14/13) Home Medications Acetaminophen 500 Mg Tablet, 1,000 MG PO Q6H PRN for PAIN-MILD Prescribed by: TERESA ROUSE on 08/29/17826 Famotidine 20 Mg Tablet, 20 MG PO BID Prescribed by: ANA PAULA JOHNSON on 11/10/196 Ferrous Sulfate 325 Mg Tablet, 325 MG PO DAILY@0800 Prescribed by: TERESA ROUSE on 08/29/17826 Hydrocodone/Acetaminophen 1 Each Tablet, 1 EACH PO Q6H PRN for PAIN-MODERATE (5- 7) Prescribed by: ANA PAULA JOHNSON on 11/10/197 Ibuprofen 600 Mg Tablet, 600 MG PO Q6H Prescribed by: TERESA ROUSE on 08/29/17826 Magnesium Oxide 250 Mg Tablet, 250 MG PO DAILY, (Reported) Ondansetron 4 Mg Tab.rapdis, 4 MG PO Q4H PRN for NAUSEA/VOMITING Prescribed by: ANA PAULA JOHNSON on 11/10/19 0007 Pnv No.122/Iron/Folic Acid 1 Each Tablet, 1 EACH PO DAILY, (Reported) Patient Home Medication List Home Medication List Reviewed: Yes Review of Systems Review of Systems Constitutional: see HPI EENTM: No Symptoms Reported Respiratory: No Symptoms Reported Cardiovascular: No Symptoms Reported Gastrointestinal: See HPI Genitourinary: No Symptoms Reported Musculoskeletal: no symptoms reported Skin: no symptoms reported Psychiatric/Neurological: No Symptoms Reported Endocrine: No Symptoms Reported Hematologic/Lymphatic: No Symptoms Reported Past Rpkavfy-Rqumjw-Hxqucr Hx Past Med/Social Hx: Reviewed and Corrections made Patient Social History Alcohol Use: Denies Use Recreational Drug Use: No Smoking Status: Current Everyday Smoker Type Used: Cigarettes Recent Foreign Travel: No Contact w/Someone Who Travel: No Recent Infectious Disease Expo: No Recent Hopitalizations: No Physical Abuse: No Sexual Abuse: No Mistreated: No Fear: No Immunizations Up To Date Tetanus Booster (TDap): Unknown Date of Influenza Vaccine: Jan 10, 2014 Seasonal Allergies Seasonal Allergies: Yes Past Medical History Surgeries: Yes Gallbladder Respiratory: Yes Asthma Cardiac: No Neurological: Yes Neuropathy Reproductive Disorders: No Female 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 ) Family history: Thyroid disorder (PT'S BROTHER- ADHD) History of drug abuse 03 FATHER 03 MOTHER No Pertinent Family Hx Physical Exam Vital Signs Vital Signs - First Documented 11/09/19 11/10/19 21:44 00:22 Temp 36.8 Pulse 94 Resp 18 B/P (MAP) 126/88 (101) Pulse Ox 100 O2 Delivery Room Air Capillary Refill : Less Than 3 Seconds Height/Weight/BMI Height: 5'0.00" Weight: 144lbs. 0.0oz. 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, no motor/sensory deficits, alert, normal mood/affect, oriented x 3 Skin: normal color, warm/dry Progress/Results/Core Measures Results/Orders Lab Results Laboratory Tests Test 11/09/19 21:53 11/09/19 22:18 Range/Units White Blood Count 7.9 4.3-11.0 10^3/uL Red Blood Count 4.81 4.35-5.85 10^6/uL Hemoglobin 15.0 11.5-16.0 G/DL Hematocrit 43 35-52 % Mean Corpuscular Volume 88 80-99 FL Mean Corpuscular Hemoglobin 31 25-34 PG Mean Corpuscular Hemoglobin Concent 35 32-36 G/DL Red Cell Distribution Width 12.1 10.0-14.5 % Platelet Count 327 130-400 10^3/uL Mean Platelet Volume 10.0 7.4-10.4 FL Neutrophils (%) (Auto) 50 42-75 % Lymphocytes (%) (Auto) 37 12-44 % Monocytes (%) (Auto) 9 0-12 % Eosinophils (%) (Auto) 5 0-10 % Basophils (%) (Auto) 0 0-10 % Neutrophils # (Auto) 3.9 1.8-7.8 X 10^3 Lymphocytes # (Auto) 2.9 1.0-4.0 X 10^3 Monocytes # (Auto) 0.7 0.0-1.0 X 10^3 Eosinophils # (Auto) 0.4 H 0.0-0.3 10^3/uL Basophils # (Auto) 0.0 0.0-0.1 10^3/uL Sodium Level 138 135-145 MMOL/L Potassium Level 3.3 L 3.6-5.0 MMOL/L Chloride Level 104 98-107 MMOL/L Carbon Dioxide Level 22 21-32 MMOL/L Anion Gap 12 5-14 MMOL/L Blood Urea Nitrogen 11 7-18 MG/DL Creatinine 0.96 0.60-1.30 MG/DL Estimat Glomerular Filtration Rate > 60 BUN/Creatinine Ratio 11 Glucose Level 114 H 70-105 MG/DL Calcium Level 8.8 8.5-10.1 MG/DL Corrected Calcium 8.4 L 8.5-10.1 MG/DL Magnesium Level 2.0 1.6-2.4 MG/DL Total Bilirubin 0.4 0.1-1.0 MG/DL Aspartate Amino Transf (AST/SGOT) 16 5-34 U/L Alanine Aminotransferase (ALT/SGPT) 13 0-55 U/L Alkaline Phosphatase 62 40-136 U/L C-Reactive Protein High Sensitivity 3.85 H 0.00-0.50 MG/DL Total Protein 7.4 6.4-8.2 GM/DL Albumin 4.5 3.2-4.5 GM/DL Lipase 27 8-78 U/L Serum Test, Qualitative NEGATIVE NEGATIVE Urine Color YELLOW Urine Clarity SL CLOUDY Urine pH 7.0 5-9 Urine Specific [place] <=1.005 1.016-1.022 Urine Protein NEGATIVE NEGATIVE Urine Glucose (UA) NEGATIVE NEGATIVE Urine Ketones NEGATIVE NEGATIVE Urine Nitrite NEGATIVE NEGATIVE Urine Bilirubin NEGATIVE NEGATIVE Urine Urobilinogen 0.2 < = 1.0 MG/DL Urine Leukocyte Esterase NEGATIVE NEGATIVE Urine RBC (Auto) NEGATIVE NEGATIVE Urine RBC 0-2 /HPF Urine WBC 0-2 /HPF Urine Squamous Epithelial Cells 2-5 /HPF Urine Crystals NONE /LPF Urine Bacteria NEGATIVE /HPF Urine Casts NONE /LPF Urine Mucus NEGATIVE /LPF Urine Culture Indicated NO My Orders Orders - ANA PAULA TINAJERO MD Ua Culture If Indicated (11/09/19 21:54) Ed Iv/Invasive Line Start (11/09/19 22:01) Lactated Ringers (Lr 1000 Ml Iv Solution (11/09/19 22:01) Hyoscyamine Sl Tablet (Levsin Sl Tablet) (11/09/19 22:15) Ondansetron Injection (Zofran Injectio (11/09/19 22:15) Famotidine Injection (Pepcid Injection) (11/09/19 22:15) Cbc With Automated Diff (11/09/19 22:01) Comprehensive Metabolic Panel (11/09/19 22:01) Hs C Reactive Protein (11/09/19 22:01) Hcg,Qualitative Serum (11/09/19 22:01) Lipase (11/09/19 22:01) Magnesium (11/09/19 22:01) Ketorolac Injection (Toradol Injection) (11/09/19 23:00) Lidocaine 2% Viscous 15 Ml (Xylocaine Vi (11/09/19 23:45) Antacid Suspension (Mylanta Suspension (11/09/19 23:45) Fentanyl Injection (Sublimaze Injection (11/10/19 00:15) Hydrocodone/Apap 5/325 Tablet (Lortab 5 (11/10/19 00:15) Medications Given in ED Current Medications Medications Dose Ordered Sig/Ld Route Start Time Stop Time Status Last Admin Dose Admin Acetaminophen/ Hydrocodone Bitart 1 tab ONCE ONCE PO 11/10/19 00:15 11/10/19 00:16 DC 11/10/19 00:15 1 TAB Al Hydrox/Mg Hydrox/Simethicone 30 ml ONCE ONCE PO 11/09/19 23:45 11/09/19 23:46 DC 11/09/19 23:41 30 ML Famotidine 20 mg ONCE ONCE IVP 11/09/19 22:15 11/09/19 22:16 DC 11/09/19 22:12 20 MG Fentanyl Citrate 50 mcg ONCE ONCE IVP 11/10/19 00:15 11/10/19 00:16 DC 11/10/19 00:15 50 MCG Hyoscyamine Sulfate 0.25 mg ONCE ONCE SL 11/09/19 22:15 11/09/19 22:16 DC 11/09/19 22:13 0.25 MG Ketorolac Tromethamine 15 mg ONCE ONCE IVP 11/09/19 23:00 11/09/19 23:01 DC 11/09/19 23:04 15 MG Lactated Ringer's 1,000 ml @ 0 mls/hr Q0M ONCE IV 11/09/19 22:01 11/09/19 22:04 DC 11/09/19 22:13 999 MLS/HR Lidocaine HCl 15 ml ONCE ONCE PO 11/09/19 23:45 11/09/19 23:46 DC 11/09/19 23:41 15 ML Ondansetron HCl 8 mg ONCE ONCE IVP 11/09/19 22:15 11/09/19 22:16 DC 11/09/19 22:12 8 MG Vital Signs/I&O 11/09/19 11/10/19 21:44 00:22 Temp 36.8 Pulse 94 81 Resp 18 19 B/P (MAP) 126/88 (101) 129/75 Pulse Ox 100 O2 Delivery Room Air Room Air Blood Pressure Mean: 101 Progress Progress Note #1: Time: 22:26 Progress Note Patient was seen and examined. She is being hydrated with a liter of LR. Symptoms are being treated with Pepcid, Zofran, and Levsin. Labs are pending. Progress Note #2: Time: 23:38 Progress Note Labs were unremarkable. Initial therapies did not resolve her pain but did improve her nausea. Toradol was given for further pain management. She still complained of significant pain with tenderness in the left upper quadrant. On repeat examination she was still fairly tender in this area. GI cocktail is being administered to further treat her pain. Progress Note #3: Progress Note Toradol and GI cocktail did not significantly improve her pain. She was given fentanyl and hydrocodone prior to discharge which did significantly improve the pain. See discharge instructions for discussion. Departure Impression Primary Impression: Generalized abdominal pain Additional Impression: Nausea vomiting and diarrhea Disposition: 01 HOME, SELF-CARE Condition: Improved Departure-Patient Inst. Decision time for Depature: 00:03 Referrals: [facility] (PCP) Primary Care Physician AASHISH FINN (Family) Primary Care Physician Patient Instructions: Severe Abdominal Pain, Adult (DC), Viral Gastroenteritis Add. Discharge Instructions: Start with a clear liquid diet. After 24 hours gradually advance your diet with small quantities of bland food as tolerated. You may use Tylenol for mild pain or hydrocodone as prescribed for more severe pain Use Pepcid as prescribed for antacid therapy. Uses Zofran (ondansetron) as prescribed for nausea and vomiting. Avoid dairy products or fatty or greasy foods until your diarrhea has resolved for at least 2 days. Return to care if you have worsening symptoms despite following these measures or if you develop new symptoms such as fever. All discharge instructions reviewed with patient and/or family. Voiced understanding. Scripts Hydrocodone/Acetaminophen (Hydrocodone-Acetamin 5-325 mg) 1 Each Tablet 1 EACH PO Q6H PRN for PAIN-MODERATE (5-7), #5 TAB Prov: ANA PAULA TINAJERO MD 11/10/19 Ondansetron (Ondansetron Odt) 4 Mg Tab.rapdis 4 MG PO Q4H PRN for NAUSEA/VOMITING, #10 TAB Prov: ANA PAULA TINAJERO MD 11/10/19 Famotidine (Pepcid) 20 Mg Tablet 20 MG PO BID, #14 TAB Prov: ANA PAULA TINAJERO MD 11/10/19 ANA PAULA TINAJERO MD Nov 09, 2019 22:26
[2019-11-09 22:27] LABS: BUN/CREATININE RATIO 11
[2019-11-09 22:28] LABS: BILIRUBIN,URINE NEGATIVE (NEGATIVE); CLARITY,URINE SL CLOUDY; COLOR,URINE YELLOW; GLUCOSE, URINE (UA) NEGATIVE (NEGATIVE); KETONES,URINE NEGATIVE (NEGATIVE); LEUKOCYTE ESTERASE ,URINE NEGATIVE (NEGATIVE); NITRITE,URINE NEGATIVE (NEGATIVE); PROTEIN,URINE NEGATIVE (NEGATIVE)
[2019-11-09 22:28] LABS: ALANINE AMINOTRANSFERASE 13 U/L (0-55)
[2019-11-09 22:29] LABS: LIPASE 27 U/L (8-78)
[2019-11-09 22:35] LABS: BACTERIA,URINE NEGATIVE /HPF; RBC,URINE 0-2 /HPF; WBC,URINE 0-2 /HPF
[2019-11-09] MEDS ORDERED: KETOROLAC 30 MG/ML VIAL IVP ONE (23:00)
[2019-11-09] MEDS ORDERED: ANTACID SUSP 30 ML UDC (MYLANTA) PO ONE (23:45)
[2019-11-09] MEDS ORDERED: LIDOCAINE 2% VISCOUS 15 ML UDC PO ONE (23:45)
[2019-11-10] MEDS ORDERED: FAMO-119 PO (00:07)
[2019-11-10] MEDS ORDERED: ONDA4TAB11 PO (00:07)
[2019-11-10] MEDS ORDERED: HYDR-3812 PO (00:07)
[2019-11-10] MEDS ORDERED: HYDROcodone/APAP 5 MG/325 MG (LORTAB) TAB PO ONE (00:15)
[2019-11-10] MEDS ORDERED: fentaNYL INJECTION 100 MCG/2 ML AMP IVP ONE (00:15)
[2019-11-10 00:22] VITALS: BP 129/75
== END 2019-11-10 00:22 | disposition home or self-care (01) ==
LOC: EDUNIT# 21:32 → ER 21:35
DX: R10.84 Generalized abdominal pain (principal); R11.2 Nausea with vomiting, unspecified; R19.7 Diarrhea, unspecified; K21.9 Gastro-esophageal reflux disease without esophagitis; F17.210 Nicotine dependence, cigarettes, uncomplicated; Z88.1 Allergy status to other antibiotic agents; Z88.8 Allergy status to other drugs, medicaments and biological substances
CPT/HCPCS: 36415; 80053; 81000; 83690; 83735; 84703; 85025; 86141

== ENCOUNTER 2021-07-13 12:15 | Emergency (ER) | payer MEDICAID ==
[~2021-07-13 12:15] MED LIST changes: +ACHD5005 PO; +FAMO-119 PO
[2021-07-13] MEDS ORDERED: NS IV 1000 ML 1,000 ML IV STA (13:07)
[2021-07-13 13:09] LABS: CLARITY,URINE CLEAR; COLOR,URINE YELLOW; GLUCOSE, URINE (UA) NEGATIVE (NEGATIVE); KETONES,URINE 1+ (NEGATIVE); LEUKOCYTE ESTERASE ,URINE TRACE (NEGATIVE); NITRITE,URINE NEGATIVE (NEGATIVE); PH,URINE 6.5 (5-9); PROTEIN,URINE TRACE (NEGATIVE)
--- NOTE | 2021-07-13 13:13 | ED Abdominal Pain ---
General Chief Complaint: Abdominal/GI Problems Stated Complaint: VOMITING - DIARRHEA - ABD PAIN Source of Information: Patient Exam Limitations: No Limitations History of Present Illness Date Seen by Provider: July 13, 2021 Time Seen by Provider: 13:08 Initial Comments Patient is a 26-year-old female presents ED with vomiting diarrhea. Symptoms started 2 to 3 days ago. She reports 10+ episodes of vomiting daily. Denies any blood. Started having diarrhea today without any hematochezia or mucousy stool. Decreased urination. Has not been able to eat or drink. She has some mild cramping to the left side that is intermittent for the past few days. Patient states she saw her primary care physician yesterday and was given Tamiflu concern for flu. She states she had negative swallow. Has not been able to take medication secondary to vomiting. She denies of any fever, sore throat, chest pain, cough, concern for vaginal bleeding or vaginal discharge. History of cholecystectomy. Allergies and Home Medications Allergies Coded Allergies: trazodone (Verified Allergy, Unknown, 07/13/21) venlafaxine (Verified Allergy, Unknown, 07/13/21) clarithromycin (Unverified Adverse Reaction, Mild, RASH, 04/30/14) Pt. reports new allergy stating caused a rash on face azithromycin (Verified Adverse Reaction, Unknown, RASH, 05/14/13) promethazine (Verified Adverse Reaction, Unknown, NAUSEA, 07/13/21) PT STATES IT UPSET HER STOMACH Patient Home Medication List Home Medication List Reviewed: Yes Acetaminophen (Acetaminophen) 500 Mg Tablet, 1,000 MG PO Q6H PRN for PAIN-MILD Prescribed by: TERESA ROUSE on 08/29/17826 Famotidine (Pepcid) 20 Mg Tablet, 20 MG PO BID Prescribed by: ANA PAULA JOHNSON on 11/10/19 0007 Famotidine (Pepcid) 20 Mg Tablet, 20 MG PO BID Prescribed by: ZACK WHITEHEAD on 07/13/21 1511 Ferrous Sulfate (Ferrous Sulfate) 325 Mg Tablet, 325 MG PO DAILY@0800 Prescribed by: TERESA ROUSE on 08/29/17826 Hydrocodone/Acetaminophen (Hydrocodone-Acetamin 5-325 mg) 1 Each Tablet, 1 EACH PO Q6H PRN for PAIN-MODERATE (5-7) Prescribed by: ANA PAULA JOHNSON on 11/10/19 000 Ibuprofen (Ibu) 600 Mg Tablet, 600 MG PO Q6H Prescribed by: TERESA ROUSE on 08/29/17 0827 Magnesium Oxide (Magnesium) 250 Mg Tablet, 250 MG PO DAILY, (Reported) Entered as Reported by: MADELEINE DAVILA on 06/11/171953 Ondansetron (Ondansetron Odt) 4 Mg Tab.rapdis, 4 MG PO Q4H PRN for NA USEA/VOMITING Prescribed by: ANA PAULA JOHNSON on 11/10/196 Ondansetron (Ondansetron Odt) 4 Mg Tab.rapdis, 4 MG PO Q6H PRN for NAUSEA/VOMITING-1ST LINE Prescribed by: ZACK WHITEHEAD on 07/13/21 1510 Pnv No.122/Iron/Folic Acid ( Multi Tablet) 1 Each Tablet, 1 EACH PO DAILY, (Reported) Entered as Reported by: MADELEINE DAVILA on 06/11/171953 Potassium Bicarbonate/Cit AC (Potassium 25 Meq Tablet Eff) 25 Meq Tablet.eff, 25 MEQ PO, (Reported) Entered as Reported by: MADELEINE DAVILA on 06/11/171953 Review of Systems Review of Systems Constitutional: No chills, No diaphoresis, No malaise; weakness EENTM: No Eye Pain, No Ear Pain, No Mouth Pain, No Mouth Swelling Cardiovascular: Denies Chest Pain, Denies Edema, Denies Irregular Heart Rate Gastrointestinal: Abdominal Pain, Diarrhea, Nausea, Vomiting Genitourinary: Denies Burning, Denies Discharge Musculoskeletal: No back pain, No joint pain All Other Systems Reviewed Negative Unless Noted: Yes Past [place]-Ljmuzw-Duehcg Hx Immunizations Up To Date Tetanus Booster (TDap): Unknown Seasonal Allergies Seasonal Allergies: Yes Past Medical History Surgeries: Yes Gallbladder Respiratory: Yes Asthma Cardiac: No Neurological: Yes Neuropathy Reproductive Disorders: No 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 ) Family history: Thyroid disorder (PT'S BROTHER- ADHD) History of drug abuse 03 FATHER 03 MOTHER No Pertinent Family Hx Physical Exam Vital Signs Vital Signs - First Documented 07/13/21 13:00 Temp 36.3 Pulse 80 Resp 20 B/P (MAP) 136/85 (102) Capillary Refill : Height/Weight/BMI Height: 5'0.00" Weight: 144lbs. 0.0oz. [id number]; 27.00 BMI Method:Stated General Appearance: WD/WN, no apparent distress HEENT: PERRL/EOMI, normal ENT inspection, TMs normal, pharynx normal Neck: non-tender, full range of motion, supple, normal inspection Respiratory: chest non-tender, lungs clear, normal breath sounds, no respiratory distress Cardiovascular: regular rate, rhythm, no edema, no gallop, no JVD Gastrointestinal: normal bowel sounds, soft, no organomegaly, no pulsatile mass, other (Left-sided abdominal tenderness. Epigastric tenderness. Normal bowel sounds are up. 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, no motor/sensory deficits, alert, normal mood/affect, oriented x 3 Skin: normal color, warm/dry Progress/Results/Core Measures Results/Orders Lab Results Laboratory Tests Test 07/13/21 13:01 07/13/21 13:03 07/13/21 13:14 Range/Units Urine Opiates Screen NEGATIVE NEGATIVE Urine Oxycodone Screen NEGATIVE NEGATIVE Urine Methadone Screen NEGATIVE NEGATIVE Urine Propoxyphene Screen NEGATIVE NEGATIVE Urine Barbiturates Screen NEGATIVE NEGATIVE Ur Tricyclic Antidepressants Screen NEGATIVE NEGATIVE Urine Phencyclidine Screen NEGATIVE NEGATIVE Urine Amphetamines Screen NEGATIVE NEGATIVE Urine Methamphetamines Screen NEGATIVE NEGATIVE Urine Benzodiazepines Screen NEGATIVE NEGATIVE Urine Cocaine Screen NEGATIVE NEGATIVE Urine Cannabinoids Screen POSITIVE H NEGATIVE Urine Color YELLOW Urine Clarity CLEAR Urine pH 6.5 5-9 Urine Specific [place] 1.020 1.016-1.022 Urine Protein TRACE H NEGATIVE Urine Glucose (UA) NEGATIVE NEGATIVE Urine Ketones 1+ H NEGATIVE Urine Nitrite NEGATIVE NEGATIVE Urine Bilirubin NEGATIVE NEGATIVE Urine Urobilinogen 1.0 < = 1.0 MG/DL Urine Leukocyte Esterase TRACE H NEGATIVE Urine RBC (Auto) NEGATIVE NEGATIVE Urine RBC RARE /HPF Urine WBC 0-2 /HPF Urine Squamous Epithelial Cells 5-10 /HPF Urine Crystals NONE /LPF Urine Bacteria MODERATE H /HPF Urine Casts NONE /LPF Urine Mucus NEGATIVE /LPF Urine Culture Indicated NO Urine Test NEGATIVE NEGATIVE White Blood Count 5.8 4.3-11.0 10^3/uL Red Blood Count 5.55 H 3.80-5.11 10^6/uL Hemoglobin 17.3 H 11.5-16.0 g/dL Hematocrit 49 35-52 % Mean Corpuscular Volume 89 80-99 fL Mean Corpuscular Hemoglobin 31 25-34 pg Mean Corpuscular Hemoglobin Concent 35 32-36 g/dL Red Cell Distribution Width 11.7 10.0-14.5 % Platelet Count 274 130-400 10^3/uL Mean Platelet Volume 10.2 9.0-12.2 fL Immature Granulocyte % (Auto) 0 % Neutrophils (%) (Auto) 59 42-75 % Lymphocytes (%) (Auto) 27 12-44 % Monocytes (%) (Auto) 11 0-12 % Eosinophils (%) (Auto) 2 0-10 % Basophils (%) (Auto) 1 0-10 % Neutrophils # (Auto) 3.4 1.8-7.8 10^3/uL Lymphocytes # (Auto) 1.6 1.0-4.0 10^3/uL Monocytes # (Auto) 0.6 0.0-1.0 10^3/uL Eosinophils # (Auto) 0.1 0.0-0.3 10^3/uL Basophils # (Auto) 0.0 0.0-0.1 10^3/uL Immature Granulocyte # (Auto) 0.0 0.0-0.1 10^3/uL Sodium Level 139 135-145 MMOL/L Potassium Level 3.8 3.6-5.0 MMOL/L Chloride Level 103 98-107 MMOL/L Carbon Dioxide Level 24 21-32 MMOL/L Anion Gap 12 5-14 MMOL/L Blood Urea Nitrogen 9 7-18 MG/DL Creatinine 1.01 0.60-1.30 MG/DL Estimat Glomerular Filtration Rate 78 BUN/Creatinine Ratio 9 Glucose Level 98 70-105 MG/DL Calcium Level 9.4 8.5-10.1 MG/DL Corrected Calcium 8.5-10.1 MG/DL Total Bilirubin 0.4 0.1-1.0 MG/DL Aspartate Amino Transf (AST/SGOT) 31 5-34 U/L Alanine Aminotransferase (ALT/SGPT) 33 0-55 U/L Alkaline Phosphatase 76 40-136 U/L Total Protein 7.9 6.4-8.2 GM/DL Albumin 4.8 H 3.2-4.5 GM/DL Lipase 21 8-78 U/L My Orders Orders - XUAN FREIRE Ua Culture If Indicated (07/13/21 12:20) Hcg,Qualitative Urine (07/13/21 12:20) Cbc With Automated Diff (07/13/21 13:07) Comprehensive Metabolic Panel (07/13/21 13:07) Lipase (07/13/21 13:07) Ns Iv 1000 Ml (Sodium Chloride 0.9%) (07/13/21 13:07) Ondansetron Injection (Zofran Injectio (07/13/21 13:15) Ketorolac Injection (Toradol Injection) (07/13/21 13:30) Ondansetron Injection (Zofran Injectio (07/13/21 14:00) Drug Screen Stat (Urine) (07/13/21 14:11) Fentanyl Inj (Sublimaze Injection) (07/13/21 14:54) Medications Given in ED Current Medications Medications Dose Ordered Sig/Ld Route Start Time Stop Time Status Last Admin Dose Admin Ketorolac Tromethamine 30 mg ONCE ONCE IVP 07/13/21 13:30 07/13/21 13:31 DC 07/13/21 13:22 30 MG Ondansetron HCl 4 mg ONCE ONCE IVP 07/13/21 13:15 07/13/21 13:16 DC 07/13/21 13:22 4 MG Ondansetron HCl 4 mg ONCE ONCE IVP 07/13/21 14:00 07/13/21 14:01 DC 07/13/21 14:05 4 MG Vital Signs/I&O 07/13/21 07/13/21 13:00 15:29 Temp 36.3 36.3 Pulse 80 79 Resp 20 18 B/P (MAP) 136/85 (102) 132/84 Departure Communication (PCP) Patient presents ED with vomiting and diarrhea for the past 2 to 3 days. Diarrhea started today with vomiting. Patient has some mild left-sided abdominal tenderness. History of cholecystectomy. No right lower quadrant or left lower quadrant tenderness. Urinalysis negative for infection. Slightly dehydrated. Was given a liter fluid Zofran with improvement. Normal white blood count, kidney function liver function. Tolerating p.o. fluid and ice chips at bedside. She states she feels hungry at this time. Negative for . No surgical abdomen at this time. She denies of any bloody stools or mucousy stools. No family history inflammatory bowel disease. Patient appears in no acute distress. Currently playing on her phone and shows no signs of distress. Likely viral however she will need follow-up with further evaluation if needed. If any worsening symptoms such as fever, worsening abdominal pain, bloody stools return back to ED for further evaluation. Will discharge with Zofran and Pepcid. recommend clear liquids for the next 2448 hrs. Then advance diet to more of a bland. Follow-up with PCP in 2 to 3 days for reevaluation Impression Primary Impression: Vomiting and diarrhea Disposition: HOME, SELF-CARE Condition: Stable Departure-Patient Inst. Decision time for Depature: 15:05 Referrals: [facility] (PCP) Primary Care Physician AASHISH FINN (Family) Primary Care Physician Patient Instructions: Nausea and Vomiting, Adult ED Scripts Famotidine (Pepcid) 20 Mg Tablet 20 MG PO BID, #14 TAB Prov: XUAN FREIRE 07/13/21 Ondansetron (Ondansetron Odt) 4 Mg Tab.rapdis 4 MG PO Q6H PRN for NAUSEA/VOMITING-1ST LINE, #10 TAB Prov: XUAN FREIRE 07/13/21 Work/School Note: Work Release Form Date Seen in the Emergency Department: July 13, 2021 Return to Work: July 16, 2021 XUAN FREIRE July 13, 2021 13:13
[2021-07-13] MEDS ORDERED: ONDANSETRON 4 MG/2 ML (SDV) Z0FRAN IVP ONE ×2 (13:15→14:00)
[2021-07-13] MEDS ORDERED: KETOROLAC 30 MG/ML VIAL IVP ONE (13:30)
[2021-07-13 13:33] LABS: BASOPHILS % (AUTO) 1 % (0-10); EOSINOPHILS # (AUTO) 0.1 10^3/uL (0.0-0.3); EOSINOPHILS % (AUTO) 2 % (0-10); HEMATOCRIT 49 % (35-52); HEMOGLOBIN 17.3 g/dL (11.5-16.0); LYMPHOCYTES # (AUTO) 1.6 10^3/uL (1.0-4.0); LYMPHOCYTES % (AUTO) 27 % (12-44); MEAN CORPUSCULAR HEMOGLOBIN 31 pg (25-34); MEAN CORPUSCULAR HGB CONC 35 g/dL (32-36); MEAN CORPUSCULAR VOLUME 89 fL (80-99); MEAN PLATELET VOLUME 10.2 fL (9.0-12.2); MONOCYTES # (AUTO) 0.6 10^3/uL (0.0-1.0); MONOCYTES % (AUTO) 11 % (0-12); NEUTROPHILS # (AUTO) 3.4 10^3/uL (1.8-7.8); NEUTROPHILS % (AUTO) 59 % (42-75); PLATELET COUNT 274 10^3/uL (130-400); WHITE BLOOD COUNT 5.8 10^3/uL (4.3-11.0)
[2021-07-13 13:51] LABS: ALBUMIN 4.8 GM/DL (3.2-4.5)
[2021-07-13 13:52] LABS: CHLORIDE 103 MMOL/L (98-107); POTASSIUM 3.8 MMOL/L (3.6-5.0); SODIUM 139 MMOL/L (135-145)
[2021-07-13 13:53] LABS: CALCIUM 9.4 MG/DL (8.5-10.1)
[2021-07-13 13:54] LABS: GLUCOSE 98 MG/DL (70-105); TOTAL PROTEIN 7.9 GM/DL (6.4-8.2)
[2021-07-13 13:55] LABS: CARBON DIOXIDE 24 MMOL/L (21-32)
[2021-07-13 13:56] LABS: BILIRUBIN,TOTAL 0.4 MG/DL (0.1-1.0)
[2021-07-13 13:57] LABS: ALKALINE PHOSPHATASE 76 U/L (40-136)
[2021-07-13 13:58] LABS: CREATININE SERUM 1.01 MG/DL (0.60-1.30); GFR ESTIMATED 78
[2021-07-13 13:59] LABS: BACTERIA,URINE MODERATE /HPF; RBC,URINE RARE /HPF; WBC,URINE 0-2 /HPF
[2021-07-13 13:59] LABS: BUN/CREATININE RATIO 9
[2021-07-13 14:00] LABS: BILIRUBIN,URINE NEGATIVE (NEGATIVE)
[2021-07-13 14:01] LABS: ALANINE AMINOTRANSFERASE 33 U/L (0-55); LIPASE 21 U/L (8-78)
[2021-07-13 14:28] LABS: AMPHETAMINE SCREEN, URINE NEGATIVE (NEGATIVE); BENZODIAZEPINES SCREEN URINE NEGATIVE (NEGATIVE); CANNABINOID SCREEN, URINE POSITIVE (NEGATIVE); COCAINE SCREEN URINE NEGATIVE (NEGATIVE)
[2021-07-13 14:29] LABS: BARBITURATE SCREEN URINE NEGATIVE (NEGATIVE); METHADONE STAT NEGATIVE (NEGATIVE); OPIATE SCREEN URINE NEGATIVE (NEGATIVE); OXYCODONE STAT NEGATIVE (NEGATIVE); PROPOXYPHENE STAT NEGATIVE (NEGATIVE); TRICYCLIC ANTIDEPRESSANTS SCRE NEGATIVE (NEGATIVE)
[2021-07-13] MEDS ORDERED: fentaNYL INJ 100 MCG/2 ML AMP IVP STA (14:54)
[2021-07-13] MEDS ORDERED: ONDA4TAB11 PO (15:10)
[2021-07-13] MEDS ORDERED: FAMO-119 PO (15:11)
[2021-07-13 15:29] VITALS: BP 132/84
== END 2021-07-13 15:29 | disposition home or self-care (01) ==
LOC: EDUNIT# 12:15 → ER 12:17
DX: R11.2 Nausea with vomiting, unspecified (principal); R19.7 Diarrhea, unspecified; Z90.49 Acquired absence of other specified parts of digestive tract; Z32.02 Encounter for pregnancy test, result negative
CPT/HCPCS: 36415; 80053; 80306; 81000; 83690; 84703; 85025

== ENCOUNTER → 2021-11-09 | Emergency (ER) | payer MEDICAID ==
[~2021-11-09] VITALS: Ht 152 cm; Wt 30.1 kg
[~2021-11-09] MED LIST changes: +LOPERAMIDE 2 MG (IMODIUM) TABLET PO STA
[2021-11-09 18:09] VITALS: BP 125/62
--- NOTE | 2021-11-09 18:43 | ED General ---
General Chief Complaint: Abdominal/GI Problems Stated Complaint: WEAKNESS Nursing Triage Note: PATIENT COMPLAINT OF DIARRHEA, HEADACHE AND WEAKNESS FOR ONE WEEK. STATES SHE ISN'T EATING WELL. History of Present Illness Date Seen by Provider: Nov 09, 2021 Time Seen by Provider: 18:10 Initial Comments 25 year old female reports her son was diagnosed approximately 7 days ago. For the last 5 days she has complained of myalgias, loss of appetite, diarrhea (she chronically has this since Cholecystecomy), and lack of energy. She denies having COVID or being vaccinated. She has not taken Immodium or anything for diarrhea. She hasn't taken Tylenol or Ibuprofen today. She is taking Aspirin daily and a multi vitamin. Timing/Duration: 4-5 Days Severity: Moderate Modifying Factors: improves with Rest Associated Systoms: No Chest Pain, No Cough, No Fever/Chills, No Headaches; Loss of Appetite, Malaise; No Nausea/Vomiting, No Rash, No Seizure, No Shortness of Air, No Syncope; Weakness Allergies and Home Medications Allergies Coded Allergies: trazodone (Verified Allergy, Unknown, 07/13/21) venlafaxine (Verified Allergy, Unknown, 07/13/21) clarithromycin (Unverified Adverse Reaction, Mild, RASH, 04/30/14) Pt. reports new allergy stating caused a rash on face azithromycin (Verified Adverse Reaction, Unknown, RASH, 05/14/13) promethazine (Verified Adverse Reaction, Unknown, NAUSEA, 07/13/21) PT STATES IT UPSET HER STOMACH Patient Home Medication List Home Medication List Reviewed: Yes Acetaminophen (Acetaminophen) 500 Mg Tablet, 1,000 MG PO Q6H PRN for PAIN-MILD Prescribed by: TERESA ROUSE on 08/29/17826 Famotidine (Pepcid) 20 Mg Tablet, 20 MG PO BID Prescribed by: ANA PAULA JOHNSON on 11/10/19 0007 Famotidine (Pepcid) 20 Mg Tablet, 20 MG PO BID Prescribed by: ZACK WHITEHEAD on 07/13/21 151 Ferrous Sulfate (Ferrous Sulfate) 325 Mg Tablet, 325 MG PO DAILY@0800 Prescribed by: TERESA ROUSE on 08/29/17826 Hydrocodone/Acetaminophen (Hydrocodone-Acetamin 5-325 mg) 1 Each Tablet, 1 EACH PO Q6H PRN for PAIN-MODERATE (5-7) Prescribed by: ANA PAULA JOHNSON on 11/10/197 Ibuprofen (Ibu) 600 Mg Tablet, 600 MG PO Q6H Prescribed by: TERESA ROUSE on 08/29/17 08 Magnesium Oxide (Magnesium) 250 Mg Tablet, 250 MG PO DAILY, (Reported) Entered as Reported by: MADELEINE DAVILA on 06/11/171953 Ondansetron (Ondansetron Odt) 4 Mg Tab.rapdis, 4 MG PO Q4H PRN for NAUSEA/VOMITING Prescribed by: ANA PAULA JOHNSON on 11/10/196 Ondansetron (Ondansetron Odt) 4 Mg Tab.rapdis, 4 MG PO Q6H PRN for NAUSEA/VOMITING-1ST LINE Prescribed by: ZACK WHITEHEAD on 07/13/21 1510 Pnv No.122/Iron/Folic Acid ( Multi Tablet) 1 Each Tablet, 1 EACH PO DAILY, (Reported) Entered as Reported by: MADELEINE DAVILA on 06/11/171953 Potassium Bicarbonate/Cit AC (Potassium 25 Meq Tablet Eff) 25 Meq Tablet.eff, 25 MEQ PO, (Reported) Entered as Reported by: MADELEINE DAVILA on 06/11/171953 Review of Systems Review of Systems Constitutional: see HPI, malaise, weakness EENTM: see HPI Respiratory: no symptoms reported, see HPI Cardiovascular: no symptoms reported, see HPI Gastrointestinal: see HPI, loss of appetite Genitourinary: no symptoms reported, see HPI : No (IUD) All Other Systems Reviewed Negative Unless Noted: Yes Past Ikujpuo-Qdcdwp-Vrsmtg Hx Immunizations Up To Date Tetanus Booster (TDap): Unknown Seasonal Allergies Seasonal Allergies: Yes Past Medical History Surgery/Hospitalization HX: NEUROPATHY, ARTHRITIS, ASTHMA Surgeries: Yes Gallbladder Respiratory: Yes Asthma Cardiac: No Neurological: Yes Neuropathy Reproductive Disorders: No Female 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 ) Family history: Thyroid disorder (PT'S BROTHER- ADHD) History of drug abuse 03 FATHER 03 MOTHER No Pertinent Family Hx Physical Exam Vital Signs Vital Signs - First Documented 11/09/21 18:09 Temp 37.0 Pulse 74 Resp 20 B/P (MAP) 125/62 (83) Pulse Ox 98 O2 Delivery Room Air Capillary Refill : Less Than 3 Seconds Height, Weight, BMI Height: 5'0.00" Weight: 144lbs. 0.0oz. [id number]; 13.00 BMI Method:Stated General Appearance: No Apparent Distress, WD/WN HEENT: PERRL/EOMI, TMs Normal, Normal ENT Inspection, Pharynx Normal Neck: Full Range of Motion, Normal Inspection, Non Tender, Supple Respiratory: Chest Non Tender, Lungs Clear, Normal Breath Sounds Cardiovascular: Regular Rate, Rhythm, No Murmur, Normal Peripheral Pulses Gastrointestinal: Normal Bowel Sounds, Non Tender, Soft Extremity: Normal Capillary Refill, Normal Inspection, Normal Range of Motion, Non Tender, No Calf Tenderness, No Pedal Edema Neurologic/Psychiatric: Alert, Oriented x3, No Motor/Sensory Deficits, Normal Mood/Affect Skin: Normal Color, Warm/Dry Progress/Results/Core Measures Suspected Sepsis SIRS Temperature: Pulse: 74 Respiratory Rate: 20 Blood Pressure 125 /62 Mean: 83 Results/Orders Lab Results Laboratory Tests Test 11/09/21 18:30 Range/Units Influenza Type A (RT-PCR) Not Detected Not Detecte Influenza Type B (RT-PCR) Not Detected Not Detecte SARS-CoV-2 RNA (RT-PCR) Detected H Not Detecte My Orders Orders - ARUN LAY Covid 19 Inhouse Test (11/09/21 18:23) Influenza A And B By Pcr (11/09/21 18:23) Loperamide Tablet (Imodium Tablet) (11/09/21 18:23) Vital Signs/I&O 11/09/21 18:09 Temp 37.0 Pulse 74 Resp 20 B/P (MAP) 125/62 (83) Pulse Ox 98 O2 Delivery Room Air Capillary Refill : Less Than 3 Seconds Blood Pressure Mean: 83 Progress Note : Time: 18:10 Progress Note patient seen and evaluated. Provided water, pedialyte, and Imodium. COVID and Flu test. 1899 patient only took sips of pedialyte, reports "I don't like the taste of it" but is drinking water. COVID + Stressed that she must eat, drink, move, and take medications or she will become much sicker and dehydrated. Discharge instructions and return precautions reviewed. All questions answered. Departure Impression Primary Impression: COVID-19 Disposition: 01 HOME, SELF-CARE Condition: Stable Departure-Patient Inst. Decision time for Depature: 18:45 Referrals: [facility] (PCP) Primary Care Physician AASHISH FINN (Family) Primary Care Physician Patient Instructions: COVID-19 (DC), Diarrhea and Travelers' Diarrhea, Adult (DC) Add. Discharge Instructions: Take Imodium 2 tablets every 6 hours, as needed for diarrhea. Alternate Tylenol 650mg and Ibuprofen 600mg every 4 hours for generalized discomfort or fever. Take Dayquil and Nyquil. Continue Aspirin and Multi Vitamin. Push foods, bland as tolerated. You must eat and drink, even if you don't have an appetite. Pedialyte, 2 cups daily. Walk 10 min every hour, in your house or outside. Fresh air and moving are helpful. Call your primary care provider, if your symptoms are not improving or worsen. Unfortunately you are beyond the time period and don't meet criteria for Oral COVID Anti-virals. Return to the Emergency Dept for new, urgent health care problems. All discharge instructions reviewed with patient and/or family. Voiced understanding. ARUN LAY Nov 09, 2021 18:43
== END ==
LOC: EDUNIT# 17:59 → ER 18:00
DX: U07.1 COVID-19 (principal); Z28.310 Unvaccinated for COVID-19
CPT/HCPCS: 87636; 99283

== ENCOUNTER 2022-04-29 15:51 | Emergency (ER) | payer MEDICAID ==
[~2022-04-29] VITALS: Ht 152.4 cm; Wt 58.9 kg
[~2022-04-29 15:51] MED LIST changes: -LOPERAMIDE 2 MG (IMODIUM) TABLET PO STA
--- NOTE | 2022-04-29 16:19 | ED Psychosocial ---
General Stated Complaint: SUICIDAL IDEATION Source: patient Exam Limitations: no limitations History of Present Illness Date Seen by Provider: Apr 29, 2022 Time Seen by Provider: 16:13 Initial Comments Patient is a 26-year-old female who presents to ED for increased depression, suicidal thoughts. She states today she had increased suicidal thoughts. She did not elaborate on the cause of these thoughts Reports loss of interest and energy. Patient states she had thoughts today of sitting in a bathtub and using a knife to cut herself. She did not act upon these thoughts. History of similar thoughts in the past. Denies hospitalization. She does drink alcohol and smoke marijuana periodically. Last use of marijuana was yesterday. History depression, anxiety, asthma and neuropathy. Patient is scheduled to follow-up with a new primary care physician next week regarding her medication. She states the medication is not helping with her depression. she is currently on Zoloft without much improvement. Patient is currently voluntary at this time. Patient is moderate risk with the plan of cutting. No active hallucinations. Allergies and Home Medications Allergies Coded Allergies: trazodone (Verified Allergy, Unknown, 07/13/21) venlafaxine (Verified Allergy, Unknown, 07/13/21) clarithromycin (Unverified Adverse Reaction, Mild, RASH, 04/30/14) Pt. reports new allergy stating caused a rash on face azithromycin (Verified Adverse Reaction, Unknown, RASH, 05/14/13) promethazine (Verified Adverse Reaction, Unknown, NAUSEA, 07/13/21) PT STATES IT UPSET HER STOMACH Patient Home Medication List Home Medication List Reviewed: Yes Acetaminophen (Acetaminophen) 500 Mg Tablet, 1,000 MG PO Q6H PRN for PAIN-MILD Prescribed by: TERESA ROUSE on 08/29/17826 Famotidine (Pepcid) 20 Mg Tablet, 20 MG PO BID Prescribed by: ANA PAULA JOHNSON on 11/10/19 0007 Famotidine (Pepcid) 20 Mg Tablet, 20 MG PO BID Prescribed by: ZACK WHITEHEAD on 07/13/21 1511 Ferrous Sulfate (Ferrous Sulfate) 325 Mg Tablet, 325 MG PO DAILY@0800 Prescribed by: TERESA ROUSE on 08/29/17826 Hydrocodone/Acetaminophen (Hydrocodone-Acetamin 5-325 mg) 1 Each Tablet, 1 EACH PO Q6H PRN for PAIN-MODERATE (5-7) Prescribed by: ANA PAULA JOHNSON on 11/10/19 000 Ibuprofen (Ibu) 600 Mg Tablet, 600 MG PO Q6H Prescribed by: TERESA ROUSE on 08/29/17 0827 Magnesium Oxide (Magnesium) 250 Mg Tablet, 250 MG PO DAILY, (Reported) Entered as Reported by: MADELEINE DAVILA on 06/11/171953 Ondansetron (Ondansetron Odt) 4 Mg Tab.rapdis, 4 MG PO Q4H PRN for NAUSEA/VOMIT ING Prescribed by: ANA PAULA JOHNSON on 11/10/196 Ondansetron (Ondansetron Odt) 4 Mg Tab.rapdis, 4 MG PO Q6H PRN for NAUSEA/VOMITING-1ST LINE Prescribed by: ZACK WHITEHEAD on 07/13/21 1510 Pnv No.122/Iron/Folic Acid ( Multi Tablet) 1 Each Tablet, 1 EACH PO DAILY, (Reported) Entered as Reported by: MADELEINE DAVILA on 06/11/171953 Potassium Bicarbonate/Cit AC (Potassium 25 Meq Tablet Eff) 25 Meq Tablet.eff, 25 MEQ PO, (Reported) Entered as Reported by: MADELEINE DAVILA on 06/11/171953 Review of Systems Constitutional: No chills, No diaphoresis, No malaise, No weakness EENTM: No hearing loss, No blurred vision, No double vision, No hoarseness, No mouth pain, No throat pain, No throat swelling Respiratory: No cough, No dyspnea on exertion Cardiovascular: No chest pain Gastrointestinal: No abdominal pain, No diarrhea, No nausea, No vomiting Genitourinary: No decreased output, No discharge Musculoskeletal: No back pain, No joint pain Skin: No change in color, No change in hair/nails Psychiatric/Neurological: Depressed, Other (SI) All Other Systems Reviewed Negative Unless Noted: Yes Past Oxmzzfq-Qeucdt-Utwfys Hx Immunizations Up To Date Tetanus Booster (TDap): Unknown First/Initial COVID19 Vaccinat: N/A Second COVID19 Vaccination Edis: N/A Seasonal Allergies Seasonal Allergies: Yes Past Medical History Surgery/Hospitalization HX: NEUROPATHY, ARTHRITIS, ASTHMA Surgeries: Yes Gallbladder Respiratory: Yes Asthma Cardiac: No Neurological: Yes Neuropathy Reproductive Disorders: No 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 ) Family history: Thyroid disorder (PT'S BROTHER- ADHD) History of drug abuse 03 FATHER 03 MOTHER No Pertinent Family Hx Physical Exam Vital Signs - First Documented 04/29/22 15:56 Temp 37.0 Pulse 81 Resp 20 B/P (MAP) 110/81 (91) Pulse Ox 96 O2 Delivery Room Air Capillary Refill : Height, Weight, BMI Height: 5'0.00" Weight: 144lbs. 0.0oz. [id number]; 13.00 BMI Method:Stated General Appearance: other (Tearful,) HEENT: PERRL/EOMI, normal ENT inspection, TMs normal, pharynx normal Neck: non-tender, full range of motion, supple, normal inspection Respiratory: chest non-tender, lungs clear, normal breath sounds, no respiratory distress, no accessory muscle use Cardiovascular: regular rate, rhythm, no edema, no gallop, no JVD Gastrointestinal: normal bowel sounds, non tender, soft, no organomegaly Extremities: normal range of motion, non-tender, normal inspection, no pedal edema, no calf tenderness Neurologic/Psychiatric: infection control practitioner II-XII nml as tested, no motor/sensory deficits, alert, normal mood/affect, oriented x 3 Appearance/Memory: appropriate appearance, appropriate insight Behavior/Eye Contact: cooperative, good eye contact Thoughts/Hallucinations: normal thought pattern, no apparent hallucination Skin: normal color, warm/dry Progress/Results/Core Measures Results/Orders Lab Results Laboratory Tests Test 04/29/22 16:40 Range/Units White Blood Count 10.9 4.3-11.0 10^3/uL Red Blood Count 5.11 3.80-5.11 10^6/uL Hemoglobin 16.0 11.5-16.0 g/dL Hematocrit 46 35-52 % Mean Corpuscular Volume 90 80-99 fL Mean Corpuscular Hemoglobin 31 25-34 pg Mean Corpuscular Hemoglobin Concent 35 32-36 g/dL Red Cell Distribution Width 12.1 10.0-14.5 % Platelet Count 311 130-400 10^3/uL Mean Platelet Volume 9.8 9.0-12.2 fL Immature Granulocyte % (Auto) 0 % Neutrophils (%) (Auto) 73 42-75 % Lymphocytes (%) (Auto) 20 12-44 % Monocytes (%) (Auto) 5 0-12 % Eosinophils (%) (Auto) 1 0-10 % Basophils (%) (Auto) 1 0-10 % Neutrophils # (Auto) 7.9 H 1.8-7.8 10^3/uL Lymphocytes # (Auto) 2.2 1.0-4.0 10^3/uL Monocytes # (Auto) 0.6 0.0-1.0 10^3/uL Eosinophils # (Auto) 0.1 0.0-0.3 10^3/uL Basophils # (Auto) 0.1 0.0-0.1 10^3/uL Immature Granulocyte # (Auto) 0.0 0.0-0.1 10^3/uL Urine Color YELLOW Urine Clarity CLEAR Urine pH 7.0 5-9 Urine Specific Bryan <=1.005 1.016-1.022 Urine Protein NEGATIVE NEGATIVE Urine Glucose (UA) NEGATIVE NEGATIVE Urine Ketones 1+ H NEGATIVE Urine Nitrite NEGATIVE NEGATIVE Urine Bilirubin NEGATIVE NEGATIVE Urine Urobilinogen 0.2 < = 1.0 MG/DL Urine Leukocyte Esterase TRACE H NEGATIVE Urine RBC (Auto) NEGATIVE NEGATIVE Urine RBC NONE /HPF Urine WBC NONE /HPF Urine Squamous Epithelial Cells 0-2 /HPF Urine Crystals NONE /LPF Urine Bacteria TRACE /HPF Urine Casts NONE /LPF Urine Mucus NEGATIVE /LPF Urine Culture Indicated NO Urine Test NEGATIVE NEGATIVE Sodium Level 142 135-145 MMOL/L Potassium Level 3.6 3.6-5.0 MMOL/L Chloride Level 106 98-107 MMOL/L Carbon Dioxide Level 22 21-32 MMOL/L Anion Gap 14 5-14 MMOL/L Blood Urea Nitrogen 7 7-18 MG/DL Creatinine 1.02 0.60-1.30 MG/DL Estimat Glomerular Filtration Rate 77 BUN/Creatinine Ratio 7 Glucose Level 116 H 70-105 MG/DL Calcium Level 9.6 8.5-10.1 MG/DL Corrected Calcium 8.5-10.1 MG/DL Total Bilirubin 0.7 0.1-1.0 MG/DL Aspartate Amino Transf (AST/SGOT) 26 5-34 U/L Alanine Aminotransferase (ALT/SGPT) 37 0-55 U/L Alkaline Phosphatase 84 40-136 U/L Total Protein 8.0 6.4-8.2 GM/DL Albumin 4.7 H 3.2-4.5 GM/DL Salicylates Level < 5.0 L 5.0-20.0 MG/DL Urine Opiates Screen NEGATIVE NEGATIVE Urine Oxycodone Screen NEGATIVE NEGATIVE Urine Methadone Screen NEGATIVE NEGATIVE Urine Propoxyphene Screen NEGATIVE NEGATIVE Acetaminophen Level < 10 L 10-30 UG/ML Urine Barbiturates Screen NEGATIVE NEGATIVE Ur Tricyclic Antidepressants Screen POSITIVE H NEGATIVE Urine Phencyclidine Screen NEGATIVE NEGATIVE Urine Amphetamines Screen NEGATIVE NEGATIVE Urine Methamphetamines Screen NEGATIVE NEGATIVE Urine Benzodiazepines Screen NEGATIVE NEGATIVE Urine Cocaine Screen NEGATIVE NEGATIVE Urine Cannabinoids Screen POSITIVE H NEGATIVE Serum Alcohol < 10 <10 MG/DL Influenza Type A (RT-PCR) Not Detected Not Detecte Influenza Type B (RT-PCR) Not Detected Not Detecte SARS-CoV-2 RNA (RT-PCR) Not Detected Not Detecte My Orders Orders - XUAN FREIRE Ua Culture If Indicated (04/29/22 16:05) Cbc With Automated Diff (04/29/22 16:05) Comprehensive Metabolic Panel (04/29/22 16:05) Alcohol (04/29/22 16:05) Drug Screen Stat (Urine) (04/29/22 16:05) Acetaminophen (04/29/22 16:05) Salicylate (04/29/22 16:05) Ekg Tracing (04/29/22 16:05) Hcg,Qualitative Urine (04/29/22 16:05) Covid 19 Inhouse Test (04/29/22 16:06) Influenza A And B By Pcr (04/29/22 16:06) Vital Signs/I&O 04/29/22 04/29/22 15:56 17:45 Temp 37.0 Pulse 81 81 Resp 20 20 B/P (MAP) 110/81 (91) 110/81 Pulse Ox 96 96 O2 Delivery Room Air Room Air Comment Sinus rhythm, short [place] interval, 77 bpm, QRS duration 95 MS, QTc 443 MS. Departure Communication (PCP) Patient with a history of suicidal thoughts of "cutting". Denies acting on her thoughts today. Increased depression and states that she takes Zoloft without much improvement. Attempt to gather more information about her depression but she would not go into detail. She is currently being managed by primary care physician. Patient feels helpless and reports decreased energy levels and loss of interest. She does have a supportive family. She does have children. Recommended lab work and behavioral health assessment. Patient is a moderate risk. 15-minute checks. Patient tearful. 1700 Patient medically cleared. Patient is coherent. Patient is able to make her own decisions. 1734. Patient without any current suicidal thoughts. Patient is requesting to leave. Discussed my concerns and recommend evaluation by behavioral health due to her thoughts today as well has her previous thoughts without previous evaluation. She states she has kids at home she feels comfortable going home. She states she is tired and does not want to wait any longer. She has family support. She states if she continues having reoccurring symptoms she will return back to the ED. discussed my concerns. She once again denies of any suicidal thoughts. She does not believe she would act upon her thoughts. She denies cutting in the past. She does appear depressed and would benefit with behavioral health evaluation. Provided resources. she has a follow-up with her primary care physician next week mother was notified and discussed the result. Impression Primary Impression: Suicidal thoughts Additional Impression: Depression Disposition: 07 AGAINST MEDICAL ADVICE Condition: Against Medical Advice Departure-Patient Inst. Decision time for Depature: 17:33 Referrals: [facility] [place] NO,LOCAL PHYSICIAN (PCP) Primary Care Physician Patient Instructions: OUTPT MENTAL HEALTH SERVICES Add. Discharge Instructions: Recommend returning back to ED if symptoms worsen. Provided outpatient health resources XUAN FREIRE Apr 29, 2022 16:19
[2022-04-29 16:52] LABS: BASOPHILS # (AUTO) 0.1 10^3/uL (0.0-0.1); BASOPHILS % (AUTO) 1 % (0-10); EOSINOPHILS # (AUTO) 0.1 10^3/uL (0.0-0.3); EOSINOPHILS % (AUTO) 1 % (0-10); HEMATOCRIT 46 % (35-52); LYMPHOCYTES # (AUTO) 2.2 10^3/uL (1.0-4.0); LYMPHOCYTES % (AUTO) 20 % (12-44); MEAN CORPUSCULAR HEMOGLOBIN 31 pg (25-34); MEAN CORPUSCULAR HGB CONC 35 g/dL (32-36); MEAN CORPUSCULAR VOLUME 90 fL (80-99); MEAN PLATELET VOLUME 9.8 fL (9.0-12.2); MONOCYTES # (AUTO) 0.6 10^3/uL (0.0-1.0); MONOCYTES % (AUTO) 5 % (0-12); NEUTROPHILS # (AUTO) 7.9 10^3/uL (1.8-7.8); NEUTROPHILS % (AUTO) 73 % (42-75); PLATELET COUNT 311 10^3/uL (130-400); WHITE BLOOD COUNT 10.9 10^3/uL (4.3-11.0)
[2022-04-29 16:53] LABS: BILIRUBIN,URINE NEGATIVE (NEGATIVE); CLARITY,URINE CLEAR; COLOR,URINE YELLOW; GLUCOSE, URINE (UA) NEGATIVE (NEGATIVE); KETONES,URINE 1+ (NEGATIVE); LEUKOCYTE ESTERASE ,URINE TRACE (NEGATIVE); NITRITE,URINE NEGATIVE (NEGATIVE); PROTEIN,URINE NEGATIVE (NEGATIVE)
[2022-04-29 16:58] LABS: HCG,QUALITATIVE URINE NEGATIVE (NEGATIVE)
[2022-04-29 17:05] LABS: BACTERIA,URINE TRACE /HPF; SQUAMOUS EPITHELIAL CELL,UR 0-2 /HPF
[2022-04-29 17:06] LABS: AMPHETAMINE SCREEN, URINE NEGATIVE (NEGATIVE); BARBITURATE SCREEN URINE NEGATIVE (NEGATIVE); BENZODIAZEPINES SCREEN URINE NEGATIVE (NEGATIVE); CANNABINOID SCREEN, URINE POSITIVE (NEGATIVE); COCAINE SCREEN URINE NEGATIVE (NEGATIVE); METHADONE STAT NEGATIVE (NEGATIVE); OPIATE SCREEN URINE NEGATIVE (NEGATIVE); OXYCODONE STAT NEGATIVE (NEGATIVE); PROPOXYPHENE STAT NEGATIVE (NEGATIVE); TRICYCLIC ANTIDEPRESSANTS SCRE POSITIVE (NEGATIVE)
[2022-04-29 17:34] LABS: ALBUMIN 4.7 GM/DL (3.2-4.5); CHLORIDE 106 MMOL/L (98-107); POTASSIUM 3.6 MMOL/L (3.6-5.0); SODIUM 142 MMOL/L (135-145)
[2022-04-29 17:36] LABS: CALCIUM 9.6 MG/DL (8.5-10.1)
[2022-04-29 17:37] LABS: GLUCOSE 116 MG/DL (70-105)
[2022-04-29 17:38] LABS: BILIRUBIN,TOTAL 0.7 MG/DL (0.1-1.0); CARBON DIOXIDE 22 MMOL/L (21-32)
[2022-04-29 17:40] LABS: ALKALINE PHOSPHATASE 84 U/L (40-136); CREATININE SERUM 1.02 MG/DL (0.60-1.30); GFR ESTIMATED 77
[2022-04-29 17:42] LABS: BUN/CREATININE RATIO 7
[2022-04-29 17:43] LABS: ACETAMINOPHEN < 10 UG/ML (10-30); SALICYLATE < 5.0 MG/DL (5.0-20.0)
[2022-04-29 17:44] LABS: ALANINE AMINOTRANSFERASE 37 U/L (0-55)
[2022-04-29 17:45] VITALS: BP 110/81
== END 2022-04-29 17:45 | disposition left against medical advice (07) ==
LOC: EDUNIT# 15:51 → ER 15:53
DX: F32.A Depression, unspecified (principal); Z20.822 Contact with and (suspected) exposure to COVID-19; Z28.310 Unvaccinated for COVID-19
CPT/HCPCS: 80053; 80306; 81000; 84703; 85025; 87636; 99283; G0480 ×3; 36415; 80320; 80329; 93005